=== PATIENT | female | born 1940 | race Caucasian/White ===

== ENCOUNTER 2023-01-16 09:31 | Inpatient (IN) | payer MEDICARE, OTHER, SELFPAY ==
--- NOTE | ~2023-01-16 | CT_ITS ---
EXAMINATION: CT HEAD WITHOUT CONTRAST (STROKE PROTOCOL) CLINICAL INFORMATION: Stroke protocol. Speech changes, confusion. COMPARISON: None available. TECHNIQUE: Contiguous axial imaging was performed from the skull base to vertex without intravenous administration of contrast. Additional 2-D coronal and sagittal reformatted images are generated on the CT workstation and uploaded to PACS. This CT examination was performed using dose optimization techniques as appropriate, variously including the following: *Automated exposure control *Adjustment of mA and/or kV according to patient size (this includes techniques or standardized protocols for targeted exams where dose is matched to indication/reason for exam; i.e. extremities or head) *Use of iterative reconstruction technique DLP: 617 mGy-cm FINDINGS: There is subtle motion artifact in the sections through the base of the brain, limiting assessment. Otherwise, the spencer-white matter differentiation appears within normal and there is no visible acute territorial infarct or mass lesion or dense vessel sign. No mass effect or edema. No intracranial hemorrhage or hematoma or extra-axial fluid collection. The ventricles are normal. No hydrocephalus. There are atrophic changes with prominence of the cortical sulci and fissures and cisterns. The calvarium appears intact. There is no pneumocephalus or orbital emphysema. The visualized sinuses and middle ears and mastoid air cells show no significant mucosal thickening. There are no air-fluid levels. Results called and discussed with RONALDO Kong in the emergency department at [address]/CT head for stroke IMPRESSION: -Subtle motion artifact through base of brain limiting assessment. -Otherwise, no acute intracranial abnormality.
--- NOTE | ~2023-01-16 | XR_ITS ---
EXAMINATION: XR CHEST CLINICAL INFORMATION: 10-year-old female with acute mental status change COMPARISON: None available. TECHNIQUE: Frontal view of the chest was obtained. FINDINGS: There is right lower lobe consolidation due to pneumonia. The rest of lungs are clear. Cardiomediastinal silhouette is normal. XR/XR chest 1V IMPRESSION: Right lower lobe pneumonia
--- NOTE | 2023-01-16 10:04 | ECG_ITS ---
Test Reason : ams Blood Pressure : / mmHG Vent. Rate : 069 BPM Atrial Rate : 069 BPM P-R Int : 190 ms QRS Dur : 094 ms QT Int : 426 ms P-R-T Axes : 027 -04 010 degrees QTc Int : 456 ms Sinus rhythm with Premature atrial complexes with Aberrant conduction Otherwise normal ECG When compared with ECG of 23-OCT-2012 14:30, Aberrant conduction is now Present T wave amplitude has decreased in Anterior leads Referred By: Gely Melendrez Electronically Signed By:Jose Mcclelland
[2023-01-16 10:10] VITALS: BP 137/47; PULSE 75; RESP 18; TEMP 36.9; O2SAT 94; BMI 31.0
--- NOTE | 2023-01-16 11:01 | PC.NURSE ---
pt received in bed alert and oreinted, some slight speech change. Patient has been worked up as a stroke alert, CT negative. IV started to RAC with 20 gauage angio. Labs drawn. Fungal rask under breasts bilaterally managed with absorbent gauze and protective powder. Report to FELIZ Jaime
[2023-01-16 11:09] LABS: MANUAL DIFF FLAG NO
[2023-01-16 11:13] LABS: Basophils Percent Auto 0.2 % (0-2); Eosinophils Percent Auto 0.4 % (0-4); Hematocrit 38.7 % (37.0-47.0); Hemoglobin 12.3 g/dl (12.0-16.0); Imm Gran Abs Auto 0.03 X10*3/uL (0.00-0.03); Imm Gran Pct Auto 0.3 % (0.0-0.4); Lymphocytes Absolute Auto 1.5 X10*3/uL (1.2-4.9); Lymphocytes Percent Auto 13.5 % (20-40); Mean Corpuscular HGB Conc 31.8 g/dl (31.0-35.0); Mean Corpuscular Hemoglobin 31.1 pg (27.0-33.0); Mean Corpuscular Volume 97.7 fL (80.0-98.0); Mean Platelet Volume 11.6 fL (9.4-12.3); Monocytes Absolute Auto 1.2 X10*3/uL (0.1-1.2); Neutrophils Absolute Auto 8.2 x10*3/uL (2.0-8.3); Neutrophils Percent Auto 74.6 % (45-73); Platelet Count 300 X10*3/uL (160-400); Red Blood Count 3.96 X10*6/uL (4.20-5.50); Red Cell Distribution Width 15.5 % (11.0-16.0); White Blood Count 10.9 X10*3/uL (4.8-10.8)
--- NOTE | 2023-01-16 11:14 | MHC.STROKE ---
0951 NOTIFIED BY ED THAT STROKE PROTOCOL WAS ACTIVATED, SLURRED SPEECH, LOC. WALK-IN AT 0931. I MET WITH THE PATIENT AND HER FAMILY, NIHSS = 1 FOR MILD APHASIA AND SHE HAD A SLOW RESPONSE ANSWERING QUESTIONS AND EXPLAINING WHAT WAS HAPPENING. SHE THOUGHT HER DAUGHTER FROM [place] WAS IN HER HOME. THE DAUGHTER AND NELDA WERE IN THE ROOM AND THEY SAID ABOUT 1 YEAR AGO SHE HAD HALLUCINATIONS DUE TO A MEDICATION CHANGE. TODAY SEEMS SIMILAR. SHE SAID YESTERDAY WAS A NORMAL DAY, SHE WENT TO BED AT 2130, WOKE AT 0730 AND THOUGHT SOMEONE WAS IN HER HOUSE, MAYBE HER DAUGHTER. NO OTHER FOCAL DEFICITS, CTH NO BLEED, SHE PASSED THE NURSING SWALLOW SCREEN, THEY ARE ASKING TO SPEAK WITH THE RESERVATION MANAGER, I DID RELAY THAT MESSAGE TO TOM PIPER. HER WORKUP IS IN PROCESS, I EXPLAINED THE PLAN OF CARE TO THE FAMILY. I WILL CONTINUE TO FOLLOW.
[2023-01-16 11:17] LABS: INTERNATIONAL NORM RATIO 1.6 (0.9-1.1); Prothrombin Time 18.4 SEC (10.0-13.1)
[2023-01-16 11:34] LABS: Troponin-I High Sensitivity 13.1 ng/L (<3.5-17.0)
[2023-01-16 11:39] LABS: Alanine Aminotransferase 21 U/L (0-31); Albumin Level 4.2 g/dL (3.5-5.0); Alkaline Phosphatase 88 U/L (39-117); Anion Gap 17 (12-20); Aspartate Amino Transferase 31 U/L (5-31); Bilirubin Direct 0.1 mg/dL (0.0-0.5); Bilirubin Total 0.6 mg/dL (0.0-1.0); Blood Urea Nitrogen 36 mg/dL (9-16); Calcium 10.1 mg/dL (8.4-10.2); Carbon Dioxide 24 mmol/L (22-29); Chloride 110 mmol/L (96-108); Creatinine Clr Calc Pharmacy 25.5; Estimated Glomerular Filt Rate 28; Glucose Random 115 mg/dL (60-115); Magnesium 2.2 mg/dL (1.6-2.6); Potassium 4.5 mmol/L (3.3-5.1); Sodium 146 mmol/L (135-145); Total Protein 7.2 g/dL (6.5-8.0)
[2023-01-16 11:41] LABS: B Type Natriuretic Peptide 149 pg/mL (<100)
--- NOTE | 2023-01-16 11:48 | PHA.MEDREC ---
Pharmacy Consult ? Medication Reconciliation Pharmacy has completed the medication reconciliation. spoke with patient and family member who had pictures of her medication bottles. The patient says that she stopped taking her Alendronate (patient states she does not like it) and does not take spironolactone everyday (only medication they did not take a photo of). The family member explained that the patient takes furosemide as directed by her doctor who she calls with her weight every morning, which determines her dose. Patient reports taking her medications yesterday.
[2023-01-16 11:56] LABS: Ammonia 19 umol/L (13-55)
[2023-01-16 12:39] VITALS: BP 120/56; PULSE 82; RESP 18; TEMP 36.5; O2SAT 94
[2023-01-16] MEDS: 0.9 % Sodium Chloride 250 ML 999 ML IV (14:11)
[2023-01-16] MEDS: cefTRIAXone sodium 1 GM in 0.9 % Sodium Chloride 50 ML IV (14:11)
--- NOTE | 2023-01-16 14:11 | ED_ITS ---
HPI - Neuro Symptoms/Deficit General Chief Complaint: Neuro Symptoms/Deficit Stated Complaint: spured speach Time Seen by Provider: 01/16/23 09:51 Source: patient, RN notes reviewed and old records reviewed Mode of arrival: ambulatory History of Present Illness HPI Narrative: 82-year-old female with past medical history of AFib on Eliquis, CHF, hypothyroid, HTN, HLD, presenting to the ED from home with family for reported confusion and word slurring since this morning. Last known well time unknown. Patient lives at home alone. Per daughter patient called her 1 hour DIGITAL CONTENT MANAGER and was noted to be confused. No reported falls or injury. Daughter states patient with similar episode a few years ago and was believed to be secondary to med ications. Denies recent illness, fever, CP/SOB, abdominal pain, nausea/vomiting. Onset (ago): unknown Related Data Home Medications Medication Instructions Recorded Confirmed apixaban 5 mg tablet (Eliquis) 5 mg PO BID 01/16/23 01/16/23 azelastine 137 mcg (0.1 %) nasal 2 spray intranasal BID PRN 01/16/23 01/16/23 spray aerosol allergies furosemide 40 mg tablet 40 - 80 mg PO DAILY 01/16/23 01/16/23 ipratropium bromide 21 mcg (0.03 1 spray intranasal BID 01/16/23 01/16/23 %) nasal spray levothyroxine 100 mcg tablet 100 mcg PO DAILY 01/16/23 01/16/23 metoprolol succinate 100 mg 100 mg PO BID 01/16/23 01/16/23 tablet,extended release 24 hr olanzapine 5 mg tablet 2.5 mg PO QAM 01/16/23 01/16/23 olanzapine 5 mg tablet 5 mg PO BEDTIME 01/16/23 01/16/23 rosuvastatin 40 mg tablet 40 mg PO BEDTIME 01/16/23 01/16/23 spironolactone 25 mg tablet 25 mg PO DAILY 01/16/23 01/16/23 vilazodone 20 mg tablet 20 mg PO DAILY 01/16/23 01/16/23 Allergies Allergy/AdvReac Type Severity Reaction Status Date / Time levofloxacin [From LEVAQUIN] Allergy Unknown RASH Unverified 04/30/20 16:15 penicillin G [PENICILLIN G] Allergy Unknown RASH Unverified 04/30/20 16:15 Review of Systems Review of Systems: ROS limited to patients acute mental status Yes all other systems are reviewed and are negative Constitutional: Constitutional: Reports as per HPI Neurologic: Denies Abnormal speech present and Reports confusion Psychiatric: Psychiatric: Reports confusion [facility]LY [facility] Past Medical History Attestation statement: The following information was validated with the patient. Source: old records reviewed Medical History (Updated 01/16/23 @ 15:05 by Gladys Caba NP) Afib CHF (congestive heart failure) Depression Hyperlipidemia Hypothyroidism Social History Social History Advance Directives: Yes Advance Directives on File: No Physical Exam Vital Signs: Vital Signs: Last Vital Signs Temp 97.7 F 01/16/23 12:39 Pulse 82 01/16/23 12:39 Resp 18 01/16/23 12:39 BP 120/56 L 01/16/23 12:39 Pulse Ox 94 01/16/23 12:39 O2 Del Method Room Air 01/16/23 12:39 BMI result Body Mass Index 31.0 Const: General: cooperative, no acute distress and confusion Orientation/consciousness: patient oriented x3 and confusion Limitations: no limitations HEENT: Head: Yes normal to inspection and Yes atraumatic Ears: hearing grossly normal bilaterally General nose exam: Normal external nose present Face and sinus: Yes normal facial exam Eyes: General: appearance normal, both eyes and all related structures EOM: EOMs intact bilaterally Neck: Neck: Yes normal visual inspection and Yes no meningeal signs Resp: Effort & Inspection: normal respiratory effort and no respiratory distress Auscultation: crackles on the right at the base Cardio: Rate: regular rate Heart sounds: S1 normal heart sound present and S2 normal heart sound present GI: Inspection: Yes normal to inspection Palpation (GI): Soft to palpation, nontender, no guarding and not rigid Back/Spine/Pelvis: Other: No midline cervical/thoracic/lumbar spinous tenderness/step-off or deformity Skin: Other: +tinea coprous/intertrigo noted beneath bilateral breasts > left with erythema and malodor Wounds: no wounds Neuro: Other: Pleasantly confused General: patient oriented x3, tone normal, moves all extremities, no meningeal signs, no focal motor deficits, CN's II-XI intact bilaterally and confusion Cognition (Neuro): normal cognition Speech: No Abnormal speech present Motor exam (neuro): 5/5 motor strength present throughout Extrem: Other: + bilateral LE pitting edema chronic per patient Course Course Course Narrative: 1417--mild leukocytosis of 10.9. PAOLA with a creatinine of 1.7, BUN of 36 CT head for stroke IMPRESSION: -Subtle motion artifact through base of brain limiting assessment. -Otherwise, no acute intracranial abnormality XR chest 1V IMPRESSION: Right lower lobe pneumonia ? >lactic/blood cultures ordered. Low suspicion for severe sepsis. Empiric IV Rocephin/azithromycin ordered. Likely cause of patient's con fusion/encephalopathy. Plan will be for admission Medications Administered Generic Name Dose Route Start Last Admin Trade Name Freq PRN Reason Stop Dose Admin Azithromycin 500 mg/ Sodium 250 mls @ 125 mls/hr 01/16/23 13:18 01/16/23 14:12 Chloride IV 01/16/23 15:17 125 mls/hr ONCE ONE Administration Discontinued Medications Generic Name Dose Route Start Last Admin Trade Name Freq PRN Reason Stop Dose Admin Ceftriaxone Sodium 1 gm/ 50 mls @ 100 mls/hr 01/16/23 13:18 01/16/23 14:11 Sodium Chloride IV 01/16/23 13:47 100 mls/hr ONCE ONE Administration Sodium Chloride 250 mls @ 999 mls/hr 01/16/23 13:30 01/16/23 14:11 Ns IV 01/16/23 13:45 999 mls/hr .Q16M LUCIANA Administration Medical Decision Making Medical Decision Making MDM Narrative: 82-year-old female with past medical history of AFib on Eliquis, CHF, hypothyroid, HTN, HLD, presenting to the ED from home with family for reported confusion and word slurring since this morning. On exam vital signs stable, NAD, A&O x3 however pleasantly confused, no evidence of trauma, right basilar crackles noted with chronic LE edema. Concern for CVA vs infectious etiology vs metabolic abnormalities. Rule out ICH. low suspicion for fractures/ACS or PE Plan: EKG, labs, CXR, head CT stroke protocol, UA, anticipated admission Please refer to course for remaining clinical decision making, interpretation of labs/imaging results, and discussions with consultants and/or family members. Differential Diagnosis Differential Diagnoses: The differential diagnosis associated with the presentation includes As above Admission/Observation Consideration of admission/observation: Escalation of care including admission/observation considered Consult Healthcare Provider Management of the patient was discussed with: Hospitalist Lab Data MDM Lab Attestation statement: I reviewed the patient's lab results. 01/16/23 10:57 01/16/23 10:57 Labs: Lab Results 01/16/23 01/16/23 01/16/23 Range/Units 10:57 10:57 10:57 WBC 10.9 H (4.8-10.8) X10*3/uL RBC 3.96 L (4.20-5.50) X10*6/uL Hgb 12.3 (12.0-16.0) g/dl Hct 38.7 (37.0-47.0) % MCV 97.7 (80.0-98.0) fL MCH 31.1 (27.0-33.0) pg MCHC 31.8 (31.0-35.0) g/dl RDW 15.5 (11.0-16.0) % Plt Count 300 (160-400) X10*3/uL MPV 11.6 (9.4-12.3) fL Immature Gran % (Auto) 0.3 (0.0-0.4) % Neut % (Auto) 74.6 H (45-73) % Lymph % (Auto) 13.5 L (20-40) % [place] % (Auto) 11.0 (2-11) % Eos % (Auto) 0.4 (0-4) % Baso % (Auto) 0.2 (0-2) % Lymph # (Auto) 1.5 (1.2-4.9) X10*3/uL [place] # (Auto) 1.2 (0.1-1.2) X10*3/uL Eos # (Auto) 0.0 (0.0-0.4) X10*3/uL Baso # (Auto) 0.0 (0.0-0.2) X10*3/uL Abs Immat Gran (auto) 0.03 (0.00-0.03) X10*3/uL Absolute Neuts (auto) 8.2 (2.0-8.3) x10*3/uL Absolute Nucleated RBC 0.000 (0.0-0.012) X10*3/uL Nucleated RBC % (auto) 0.0 (0.0-0.2) /100WBC PT 18.4 H (10.0-13.1) SEC INR 1.6 H (0.9-1.1) Sodium 146 H (135-145) mmol/L Potassium 4.5 (3.3-5.1) mmol/L Chloride 110 H (96-108) mmol/L Carbon Dioxide 24 (22-29) mmol/L Anion Gap 17 (12-20) BUN 36 H (9-16) mg/dL Creatinine 1.75 H (0.5-1.4) mg/dL Estim Creat Clear Calc 25.5 Estimated GFR 28 Random Glucose 115 (60-115) mg/dL Lactic Acid (0.5-2.0) mmol/L Calcium 10.1 (8.4-10.2) mg/dL Magnesium 2.2 (1.6-2.6) mg/dL Total Bilirubin 0.6 (0.0-1.0) mg/dL Direct Bilirubin 0.1 (0.0-0.5) mg/dL AST 31 (5-31) U/L ALT 21 (0-31) U/L Alkaline Phosphatase 88 (39-117) U/L Ammonia (13-55) umol/L Troponin I High Sens (<3.5-17.0) ng/L B-Natriuretic Peptide (<100) pg/mL Total Protein 7.2 (6.5-8.0) g/dL Albumin 4.2 (3.5-5.0) g/dL 01/16/23 01/16/23 01/16/23 Range/Units 10:57 10:58 11:45 WBC (4.8-10.8) X10*3/uL RBC (4.20-5.50) X10*6/uL Hgb (12.0-16.0) g/dl Hct (37.0-47.0) % MCV (80.0-98.0) fL MCH (27.0-33.0) pg MCHC (31.0-35.0) g/dl RDW (11.0-16.0) % Plt Count (160-400) X10*3/uL MPV (9.4-12.3) fL Immature Gran % (Auto) (0.0-0.4) % Neut % (Auto) (45-73) % Lymph % (Auto) (20-40) % [place] % (Auto) (2-11) % Eos % (Auto) (0-4) % Baso % (Auto) (0-2) % Lymph # (Auto) (1.2-4.9) X10*3/uL [place] # (Auto) (0.1-1.2) X10*3/uL Eos # (Auto) (0.0-0.4) X10*3/uL Baso # (Auto) (0.0-0.2) X10*3/uL Abs Immat Gran (auto) (0.00-0.03) X10*3/uL Absolute Neuts (auto) (2.0-8.3) x10*3/uL Absolute Nucleated RBC (0.0-0.012) X10*3/uL Nucleated RBC % (auto) (0.0-0.2) /100WBC PT (10.0-13.1) SEC INR (0.9-1.1) Sodium (135-145) mmol/L Potassium (3.3-5.1) mmol/L Chloride (96-108) mmol/L Carbon Dioxide (22-29) mmol/L Anion Gap (12-20) BUN (9-16) mg/dL Creatinine (0.5-1.4) mg/dL Estim Creat Clear Calc Estimated GFR Random Glucose (60-115) mg/dL Lactic Acid (0.5-2.0) mmol/L Calcium (8.4-10.2) mg/dL Magnesium (1.6-2.6) mg/dL Total Bilirubin (0.0-1.0) mg/dL Direct Bilirubin (0.0-0.5) mg/dL AST (5-31) U/L ALT (0-31) U/L Alkaline Phosphatase (39-117) U/L Ammonia 19 (13-55) umol/L Troponin I High Sens 13.1 (<3.5-17.0) ng/L B-Natriuretic Peptide 149 H (<100) pg/mL Total Protein (6.5-8.0) g/dL Albumin (3.5-5.0) g/dL 06/05/23 06/05/23 Range/Units 14:02 14:03 WBC (4.8-10.8) X10*3/uL RBC (4.20-5.50) X10*6/uL Hgb (12.0-16.0) g/dl Hct (37.0-47.0) % MCV (80.0-98.0) fL MCH (27.0-33.0) pg MCHC (31.0-35.0) g/dl RDW (11.0-16.0) % Plt Count (160-400) X10*3/uL MPV (9.4-12.3) fL Immature Gran % (Auto) (0.0-0.4) % Neut % (Auto) (45-73) % Lymph % (Auto) (20-40) % [place] % (Auto) (2-11) % Eos % (Auto) (0-4) % Baso % (Auto) (0-2) % Lymph # (Auto) (1.2-4.9) X10*3/uL [place] # (Auto) (0.1-1.2) X10*3/uL Eos # (Auto) (0.0-0.4) X10*3/uL Baso # (Auto) (0.0-0.2) X10*3/uL Abs Immat Gran (auto) (0.00-0.03) X10*3/uL Absolute Neuts (auto) (2.0-8.3) x10*3/uL Absolute Nucleated RBC (0.0-0.012) X10*3/uL Nucleated RBC % (auto) (0.0-0.2) /100WBC PT (10.0-13.1) SEC INR (0.9-1.1) Sodium (135-145) mmol/L Potassium (3.3-5.1) mmol/L Chloride (96-108) mmol/L Carbon Dioxide (22-29) mmol/L Anion Gap (12-20) BUN (9-16) mg/dL Creatinine (0.5-1.4) mg/dL Estim Creat Clear Calc Estimated GFR Random Glucose (60-115) mg/dL Lactic Acid 0.9 (0.5-2.0) mmol/L Calcium (8.4-10.2) mg/dL Magnesium (1.6-2.6) mg/dL Total Bilirubin (0.0-1.0) mg/dL Direct Bilirubin (0.0-0.5) mg/dL AST (5-31) U/L ALT (0-31) U/L Alkaline Phosphatase (39-117) U/L Ammonia (13-55) umol/L Troponin I High Sens 11.9 (<3.5-17.0) ng/L B-Natriuretic Peptide (<100) pg/mL Total Protein (6.5-8.0) g/dL Albumin (3.5-5.0) g/dL Radiology Impression Discussion of test interpretation with radiology: I have reviewed the radiologist's reading. External Record Review External record reviewed: Inpatient record, Office record, Outpatient record, Prior outpatient labs, Prior outpatient radiology, Primary care record and Outside ED record Tests considered The following testing was considered but not selected: As above Critical Care Time Critical Care Time Critical Care Time: Yes Total Critical Care Time: 32 Attestation: I have personally provided critical care time exclusive of time spent on separately billable procedures. Time includes review of lab data, radiology results, discussion with consultants, and monitoring for potential dec ompensation. Intervention performed as documented. Discharge Plan Discharge Clinical Impression: Pneumonia, Encephalopathy Patient Disposition: Admitted As Inpatient
[2023-01-16] MEDS: Azithromycin 500 MG in 0.9 % Sodium Chloride 250 ML 125 MG IV (14:12)
[2023-01-16 14:30] LABS: Lactic Acid 0.9 mmol/L (0.5-2.0)
[2023-01-16 14:41] LABS: Troponin-I High Sensitivity 11.9 ng/L (<3.5-17.0)
--- NOTE | 2023-01-16 15:03 | P.HPHOSP_ITS ---
History of Present Illness Date of Service: 01/16/23 Attending physician on admission: Zhanna Mullins Chief Complaint: confusion 82 year old women presenting with increased confusion over the last several days with some mild shortness of breath. According to the patient's daughter this had happened previously about a year ago and was related to medication changes. Patient denied fever, chills, nausea, vomiting, diarrhea. Her daughter reported that she had called her today and told her that her other sister was in the room with her boyfriend but in fact her daughter lives in another state and is . Patient seems pleasantly confused but alert to self and place. Chest x-ray with noted right lower lobe pneumonia, head CT negative for acute abnormality. Sodium 146, creatinine 1.75, patient with a history chronic kidney disease. Vital signs stable. Patient was given a dose of Rocephin, azithromycin, IV fluid. She will be admitted for further management and treatment of acute to encephalopathy secondary to community-acquired pneumonia. Review of Systems Review of Systems: Denies any recent fever chills or decrease in appetite, confusion respiratory denies any shortness of breath coverage production cardiovascular denied chest pain gastrointestinal denies any dysphagia abdominal pain nausea vomiting or diarrhea genitourinary denies any dysuria frequency or hematuria musculoskeletal denies any joint pain or swelling neuropsych denies any weakness or seizures all other systems reviewed are negative FOR[facility]LY [facility] Medical History (Updated 01/16/23 @ 15:05 by Gladys Caba NP) Afib CHF (congestive heart failure) Depression Hyperlipidemia Hypothyroidism Family History (Updated 01/16/23 @ 16:03 by Gladys Caba NP) Father Stroke Surgical History (Updated 01/16/23 @ 15:06 by Gladys Caba NP) H/O knee surgery H/O: hysterectomy Social History Advance Directives: Yes Advance Directives on File: No Meds Allergies Allergy/AdvReac Type Severity Reaction Status Date / Time levofloxacin [From LEVAQUIN] Allergy Unknown RASH Unverified 04/30/20 16:15 penicillin G [PENICILLIN G] Allergy Unknown RASH Unverified 04/30/20 16:15 Active Medications: Current Medications Azithromycin 500 mg/ Sodium (Chloride) 250 mls @ 125 mls/hr IV ONCE ONE Stop: 01/16/23 15:17 Last Admin: 01/16/23 14:12 Dose: 125 mls/hr Home Medications Medication Instructions Recorded Confirmed Last Taken Type apixaban 5 mg tablet (Eliquis) 5 mg PO BID 01/16/23 01/16/23 01/15/23 History azelastine 137 mcg (0.1 %) nasal 2 spray intranasal BID PRN 01/16/23 01/16/23 01/15/23 History spray aerosol allergies furosemide 40 mg tablet 40 - 80 mg PO DAILY 01/16/23 01/16/23 01/15/23 History ipratropium bromide 21 mcg (0.03 1 spray intranasal BID 01/16/23 01/16/23 01/15/23 History %) nasal spray levothyroxine 100 mcg tablet 100 mcg PO DAILY 01/16/23 01/16/23 01/15/23 History metoprolol succinate 100 mg 100 mg PO BID 01/16/23 01/16/23 01/15/23 History tablet,extended release 24 hr olanzapine 5 mg tablet 2.5 mg PO QAM 01/16/23 01/16/23 01/15/23 History olanzapine 5 mg tablet 5 mg PO BEDTIME 01/16/23 01/16/23 01/15/23 History rosuvastatin 40 mg tablet 40 mg PO BEDTIME 01/16/23 01/16/23 01/15/23 History spironolactone 25 mg tablet 25 mg PO DAILY 01/16/23 01/16/23 Unknown History vilazodone 20 mg tablet 20 mg PO DAILY 01/16/23 01/16/23 01/15/23 History Physical Exam Vital Signs and Narrative: Vital Signs: Last Vital Signs Temp 97.7 F 01/16/23 12:39 Pulse 82 01/16/23 12:39 Resp 18 01/16/23 12:39 BP 120/56 L 01/16/23 12:39 Pulse Ox 94 01/16/23 12:39 O2 Del Method Room Air 01/16/23 12:39 BMI result Body Mass Index 31.0 Appearing in no acute distress head is normocephalic atraumatic eyes pupils are PERRLA sclera is anicteric mouth throat mucous membranes are intact and moist neck is supple no lymphadenopathy, no JVD noted lung sounds are clear to auscultation heart regular rate rhythm, clear S1, S2 positive bowel sounds, abdomen is soft, nontender neuro patient is alert x3, no focal deficits LE edema bilaterally chronic Results Labs 01/16/23 10:57 01/16/23 10:57 Labs: Laboratory Results - last 24 hr 01/16/23 01/16/23 01/16/23 10:57 10:57 10:57 MCV 97.7 MCH 31.1 MCHC 31.8 RDW 15.5 Plt Count 300 MPV 11.6 Immature Gran % (Auto) 0.3 Neut % (Auto) 74.6 H Lymph % (Auto) 13.5 L [place] % (Auto) 11.0 Eos % (Auto) 0.4 Baso % (Auto) 0.2 Lymph # (Auto) 1.5 [place] # (Auto) 1.2 Eos # (Auto) 0.0 Baso # (Auto) 0.0 Abs Immat Gran (auto) 0.03 Absolute Neuts (auto) 8.2 Absolute Nucleated RBC 0.000 Nucleated RBC % (auto) 0.0 PT 18.4 H INR 1.6 H Anion Gap 17 Estim Creat Clear Calc 25.5 Estimated GFR 28 Random Glucose 115 Lactic Acid Calcium 10.1 Magnesium 2.2 Total Bilirubin 0.6 Direct Bilirubin 0.1 AST 31 ALT 21 Alkaline Phosphatase 88 Ammonia Troponin I High Sens B-Natriuretic Peptide Total Protein 7.2 Albumin 4.2 01/16/23 01/16/23 01/16/23 10:57 10:58 11:45 MCV MCH MCHC RDW Plt Count MPV Immature Gran % (Auto) Neut % (Auto) Lymph % (Auto) [place] % (Auto) Eos % (Auto) Baso % (Auto) Lymph # (Auto) [place] # (Auto) Eos # (Auto) Baso # (Auto) Abs Immat Gran (auto) Absolute Neuts (auto) Absolute Nucleated RBC Nucleated RBC % (auto) PT INR Anion Gap Estim Creat Clear Calc Estimated GFR Random Glucose Lactic Acid Calcium Magnesium Total Bilirubin Direct Bilirubin AST ALT Alkaline Phosphatase Ammonia 19 Troponin I High Sens 13.1 B-Natriuretic Peptide 149 H Total Protein Albumin 01/16/23 01/16/23 14:02 14:03 MCV MCH MCHC RDW Plt Count MPV Immature Gran % (Auto) Neut % (Auto) Lymph % (Auto) [place] % (Auto) Eos % (Auto) Baso % (Auto) Lymph # (Auto) [place] # (Auto) Eos # (Auto) Baso # (Auto) Abs Immat Gran (auto) Absolute Neuts (auto) Absolute Nucleated RBC Nucleated RBC % (auto) PT INR Anion Gap Estim Creat Clear Calc Estimated GFR Random Glucose Lactic Acid 0.9 Calcium Magnesium Total Bilirubin Direct Bilirubin AST ALT Alkaline Phosphatase Ammonia Troponin I High Sens 11.9 B-Natriuretic Peptide Total Protein Albumin Imaging Radiologist's Impressions: Impressions Head CT 01/16/23 09:53 IMPRESSION: -Subtle motion artifact through base of brain limiting assessment. -Otherwise, no acute intracranial abnormality. Chest X-Ray 01/16/23 10:13 IMPRESSION: Right lower lobe pneumonia Assessment and Plan (1) Pneumonia: Status: Acute Plan 82 year old women admitted with acute metabolic encephalopathy secondary to CAP Acute metabolic encephalopathy secondary to CAP Start Rocephin and azithromycin supplemental oxygen as needed follow blood cx monitor mental status PAOLA on ckd 4 baseline likely secondary to dehydration hold lasix and spironolactone follow BMP chronic LE edema hold lasix and spironolactone for now due to PAOLA mental health continue home medications ARMIDA cpap Obesity. BMI 31.0 Discussed importance of weight management as this may be contributing to worsening of other comorbidities DVT prophylaxis with dorian attending Dr. Mullins full code 2 inpatient midnights for tx of encephalopathy and CAP Time Spent With Patient Time: Total time managing care of this patient today ____ minutes. Quality Stroke Does the patient have a stroke diagnosis?: No VTE Prior VTE?: No VTE Risk Level:: Medical - moderate - high VTE Device Contraindication: Treatment Not Indicated VTE Drug Contraindication: N/A - Med Ordered
[2023-01-16 16:27] VITALS: BP 109/58; PULSE 91; RESP 18; O2SAT 91
[2023-01-16 16:41] LABS: Appearance Urine Clear; Color Urine Yellow; Glucose Urine UA Negative (Negative); Leukocyte Esterase Urine Moderate (2+) (Negative); Nitrite Urine Positive (Negative); PH 5.5 (5.0-9.0); UMIC TRIGGER UACC YES; Urine Blood Negative (Negative); Urine Ketones Trace mg/dL (Negative); Urine Protein 30 (1+) mg/dL (Neg-Trace)
[2023-01-16 16:43] LABS: Bacteria Urine 4+ (None Seen); Hyaline Casts Urine 0-2 /LPF (0-2); RBC Urine 0-2 /HPF (0-2); UACC Culture Trigger YES
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
[2023-01-16] MEDS: OLANZapine 5 MG TABLET PO (20:53)
[2023-01-16] MEDS: Metoprolol Succinate ER 100 MG TAB.ER.24H PO (20:53)
[2023-01-16] MEDS: Atorvastatin Calcium 80 MG TABLET PO (20:53)
[2023-01-16] MEDS: Apixaban 5 MG TABLET PO (20:53)
[2023-01-16 21:44] VITALS: BP 161/70; PULSE 117; RESP 22; TEMP 37.1; O2SAT 94
[2023-01-16 22:30] VITALS: BP 141/67; PULSE 94; RESP 16; TEMP 36; O2SAT 96
[2023-01-16 23:26] VITALS: BMI 34.0
[2023-01-17] VITALS (8 sets, daily range): BP systolic 132–159; BP diastolic 65–90; PULSE 72–90; RESP 16–20; TEMP 36.1–36.7; O2SAT 91–96
[2023-01-17] MEDS: 0.9 % Sodium Chloride Flush 3 ML SYRINGE IVFLUSH ×4 (01:06→19:50)
[2023-01-17] MEDS: Levothyroxine Sodium 100 MCG TABLET PO (05:35)
[2023-01-17 07:02] LABS: Basophils Percent Auto 0.1 % (0-2); Eosinophils Percent Auto 0.2 % (0-4); Hemoglobin 11.8 g/dl (12.0-16.0); Imm Gran Abs Auto 0.05 X10*3/uL (0.00-0.03); Imm Gran Pct Auto 0.4 % (0.0-0.4); Lymphocytes Absolute Auto 2.6 X10*3/uL (1.2-4.9); Lymphocytes Percent Auto 20.2 % (20-40); MANUAL DIFF FLAG SCAN; Mean Corpuscular HGB Conc 31.1 g/dl (31.0-35.0); Mean Corpuscular Hemoglobin 29.9 pg (27.0-33.0); Mean Corpuscular Volume 96.4 fL (80.0-98.0); Mean Platelet Volume 11.8 fL (9.4-12.3); Monocytes Absolute Auto 1.5 X10*3/uL (0.1-1.2); Monocytes Percent Auto 11.8 % (2-11); Neutrophils Absolute Auto 8.6 x10*3/uL (2.0-8.3); Neutrophils Percent Auto 67.3 % (45-73); Platelet Count 308 X10*3/uL (160-400); Red Blood Count 3.94 X10*6/uL (4.20-5.50); Red Cell Distribution Width 15.8 % (11.0-16.0); SCAN SMEAR FLAG 1; White Blood Count 12.8 X10*3/uL (4.8-10.8)
[2023-01-17 07:17] LABS: Anion Gap 18 (12-20); Blood Urea Nitrogen 23 mg/dL (9-16); Calcium 9.8 mg/dL (8.4-10.2); Carbon Dioxide 21 mmol/L (22-29); Chloride 111 mmol/L (96-108); Creatinine Clr Calc Pharmacy 33.7; Estimated Glomerular Filt Rate 36; Glucose Random 102 mg/dL (60-115); Potassium 4.1 mmol/L (3.3-5.1); Sodium 146 mmol/L (135-145)
[2023-01-17 07:27] LABS: SLIDE REVIEW VERIFIED
[2023-01-17] MEDS: OLANZapine 2.5 MG TABLET PO (08:26)
[2023-01-17] MEDS: Metoprolol Succinate ER 100 MG TAB.ER.24H PO ×2 (08:26→19:49)
[2023-01-17] MEDS: Apixaban 5 MG TABLET PO ×2 (08:27→19:50)
[2023-01-17] MEDS: Vilazodone HCL 20 MG TABLET PO (11:01)
[2023-01-17] MEDS: cefTRIAXone sodium 1 GM in 0.9 % Sodium Chloride 50 ML IV (13:15)
--- NOTE | 2023-01-17 14:47 | HO.PM.IMPN ---
Subjective Subjective Date of Service: 01/17/23 Review of Systems Follow up CAP feeling better, no cough still with some mild confusion Physical Exam Vital Signs: Vital Signs: Last Vital Signs Temp 97.5 F 01/17/23 12:00 Pulse 85 01/17/23 12:00 Resp 18 01/17/23 12:00 BP 159/73 H 01/17/23 12:00 Pulse Ox 92 01/17/23 12:00 O2 Del Method Room Air 01/17/23 12:00 BMI result Body Mass Index 34.0 Appearing in no acute distress lung sounds are clear to auscultation heart regular rate rhythm, clear S1, S2 positive bowel sounds, abdomen is soft, nontender neuro patient is alert x3, no focal deficits Objective Data Active Medications Acetaminophen (Acetaminophen 325 Mg Tablet) 650 mg PO Q6H PRN PRN Reason: Pain, Mild (Pain Scale 1-3) Apixaban (Apixaban 5 Mg Tablet) 5 mg PO BID [facility] Last Admin: 01/17/23 08:27 Dose: 5 mg Documented By: MARTIR Atorvastatin Calcium (Atorvastatin Calcium 80 Mg Tablet) 80 mg PO BEDTIME [facility] Last Admin: 01/16/23 20:53 Dose: 80 mg Documented By: TREY Azelastine HCl (Azelastine Hcl Nasal 137 Mcg/[place] 30 Ml) 2 spray NOSTRIL-B BID PRN PRN Reason: allergies Ceftriaxone Sodium 1 gm/ (Sodium Chloride) 50 mls @ 100 mls/hr IV Q24H [facility] Last Infusion: 01/17/23 14:08 Dose: 0 mls/hr Documented By: MARTIR Azithromycin 500 mg/ Sodium (Chloride) 250 mls @ 125 mls/hr IV Q24H [facility] Ipratropium [place] (Ipratropium [place] 0.03 % 30 Ml [place]) 1 spray NOSTRIL-B BID [facility] Last Admin: 01/17/23 11:07 Dose: Not Given Documented By: MARTIR Non-Admin Reason: Med Not Available Levothyroxine Sodium (Levothyroxine Sodium 100 Mcg Tablet) 100 mcg PO DAILY@0600 [facility] Last Admin: 01/17/23 05:35 Dose: 100 mcg Documented By: ERIC Metoprolol Succinate (Metoprolol Succinate Er 100 Mg Tab.Er.24h) 100 mg PO BID [facility]; Protocol Last Admin: 01/17/23 08:26 Dose: 100 mg Documented By: MARTIR Olanzapine (Olanzapine 2.5 Mg Tablet) 2.5 mg PO DAILY [facility] Last Admin: 01/17/23 08:26 Dose: 2.5 mg Documented By: MARTIR Olanzapine (Olanzapine 5 Mg Tablet) 5 mg PO BEDTIME [facility] Last Admin: 01/16/23 20:53 Dose: 5 mg Documented By: TREY Ondansetron HCl (Ondansetron Hcl 4 Mg/2 Ml Vial) 4 mg IVPUSH Q8H PRN PRN Reason: Nausea and Vomiting Sodium Chloride (0.9 % Sodium Chloride Flush 3 Ml Syringe) 3 ml IVFLUSH QSHIFT [facility] Last Admin: 01/17/23 08:27 Dose: 3 ml Documented By: MARTIR Vilazodone HCl (Vilazodone Hcl 20 Mg Tablet) 20 mg PO DAILY [facility] Last Admin: 01/17/23 11:01 Dose: 20 mg Documented By: MARTIR Labs 01/17/23 05:40 01/17/23 05:40 Labs: Laboratory Results - last 24 hr 01/16/23 01/17/23 01/17/23 16:30 05:40 05:40 MCV 96.4 MCH 29.9 MCHC 31.1 RDW 15.8 Plt Count 308 MPV 11.8 Immature Gran % (Auto) 0.4 Neut % (Auto) 67.3 Lymph % (Auto) 20.2 [place] % (Auto) 11.8 H Eos % (Auto) 0.2 Baso % (Auto) 0.1 Lymph # (Auto) 2.6 [place] # (Auto) 1.5 H Eos # (Auto) 0.0 Baso # (Auto) 0.0 Abs Immat Gran (auto) 0.05 H Absolute Neuts (auto) 8.6 H Absolute Nucleated RBC 0.000 Nucleated RBC % (auto) 0.0 Smear Tech's Comments VERIFIED Anion Gap 18 Estim Creat Clear Calc 33.7 Estimated GFR 36 Random Glucose 102 Calcium 9.8 Urine Color Yellow Urine Appearance Clear Urine pH 5.5 Ur Specific [place] 1.020 Urine Protein 30 (1+) H Urine Glucose (UA) Negative Urine Ketones Trace Urine Blood Negative Urine Nitrite Positive H Ur Leukocyte Esterase Moderate (2+) H Urine RBC 0-2 Urine WBC 11-20 H Ur Squamous Epith Cells 6-10 Urine Bacteria 4+ Hyaline Casts 0-2 Microbiology Microbiology Results: Microbiology 01/16/23 16:44 Urine Culture - Preliminary Urine clean catch - Urine spencer top Culture too young to evaluate. Assessment and Plan (1) Pneumonia: Status: Acute Plan 82 year old women admitted with acute metabolic encephalopathy secondary to CAP Acute metabolic encephalopathy secondary to CAP continue Rocephin and azithromycin supplemental oxygen as needed follow blood cx monitor mental status PAOLA on ckd 4. Resolved close to baseline likely secondary to dehydration hold lasix and spironolactone for now, restart in am if renal function allows follow BMP chronic LE edema hold lasix and spironolactone for now due to PAOLA. restart in am mental health continue home medications ARMIDA cpap Obesity. BMI 31.0 Discussed importance of weight management as this may be contributing to worsening of other comorbidities DVT prophylaxis with dorian attending Dr. Recinos full code dispo plan for home with PT continue tx of encephalopathy and CAP Time Spent With Patient Time: Total time managing care of this patient today ____ minutes. Quality Stroke Does the patient have a stroke diagnosis?: No VTE Prior VTE?: No VTE Risk Level:: Medical - moderate - high VTE Device Contraindication: Treatment Not Indicated VTE Drug Contraindication: N/A - Med Ordered
[2023-01-17] MEDS: Azithromycin 500 MG in 0.9 % Sodium Chloride 250 ML 125 MG IV (14:51)
--- NOTE | 2023-01-17 14:52 | P.DS_ITS ---
DS: Providers Provider Date of admission: 01/16/23 16:09 Primary care physician: Jen Yeboah MD DS: Diagnosis Discharge Diagnosis (1) Pneumonia: Status: Acute DS: Summary Hospital Course Hospital Course: 82 year old women presenting with increased confusion over the last several days with some mild shortness of breath.? According to the patient's daughter this had happened previously about a year ago and was related to medication changes.? Patient denied fever, chills, nausea, vomiting, diarrhea.? Her daughter reported that she had called her today and told her that her other sister was in the room with her boyfriend but in fact her daughter lives in another state and is .? Patient seems pleasantly confused but alert to self and place.? Chest x-ray with noted right lower lobe pneumonia, head CT negative for acute abnormality.? Sodium 146, creatinine 1.75, patient with a history chronic kidney disease.? Vital signs stable.? Patient was given a dose of Rocephin, azithromycin, IV fluid.? She will be admitted for further management and treatment of acute to encephalopathy secondary to community-acquired pneumonia. Acute metabolic encephalopathy secondary to CAP continue Rocephin and azithromycin supplemental oxygen as needed follow blood cx monitor mental status PAOLA on ckd 4. Resolved close to baseline likely secondary to dehydration hold lasix and spironolactone for now, restart in am if renal function allows follow BMP chronic LE edema hold lasix and spironolactone for now due to PAOLA. restart in am mental health continue home medications ARMIDA cpap Obesity. BMI 31.0 Discussed importance of weight management as this may be contributing to worsening of other comorbidities Time Spent with Patient Time attestation: Total time managing care of this patient today ____ minutes. Physical Exam Vital Signs: Vital Signs: Last Vital Signs Temp 97.5 F 01/17/23 12:00 Pulse 85 01/17/23 12:00 Resp 18 01/17/23 12:00 BP 159/73 H 01/17/23 12:00 Pulse Ox 92 01/17/23 12:00 O2 Del Method Room Air 01/17/23 12:00 BMI result Body Mass Index 34.0 DS: Data Data Completed and Pending Labs on day of discharge: Laboratory Results - last 24 hr 01/16/23 01/17/23 01/17/23 16:30 05:40 05:40 WBC 12.8 H RBC 3.94 L Hgb 11.8 L Hct 38.0 MCV 96.4 MCH 29.9 MCHC 31.1 RDW 15.8 Plt Count 308 MPV 11.8 Immature Gran % (Auto) 0.4 Neut % (Auto) 67.3 Lymph % (Auto) 20.2 [place] % (Auto) 11.8 H Eos % (Auto) 0.2 Baso % (Auto) 0.1 Lymph # (Auto) 2.6 [place] # (Auto) 1.5 H Eos # (Auto) 0.0 Baso # (Auto) 0.0 Abs Immat Gran (auto) 0.05 H Absolute Neuts (auto) 8.6 H Absolute Nucleated RBC 0.000 Nucleated RBC % (auto) 0.0 Smear Tech's Comments VERIFIED Sodium 146 H Potassium 4.1 Chloride 111 H Carbon Dioxide 21 L Anion Gap 18 BUN 23 H Creatinine 1.39 Estim Creat Clear Calc 33.7 Estimated GFR 36 Random Glucose 102 Calcium 9.8 Urine Color Yellow Urine Appearance Clear Urine pH 5.5 Ur Specific [place] 1.020 Urine Protein 30 (1+) H Urine Glucose (UA) Negative Urine Ketones Trace Urine Blood Negative Urine Nitrite Positive H Ur Leukocyte Esterase Moderate (2+) H Urine RBC 0-2 Urine WBC 11-20 H Ur Squamous Epith Cells 6-10 Urine Bacteria 4+ Hyaline Casts 0-2 Preliminary micro results at discharge 01/16/23 16:44 Urine Culture - Preliminary Urine clean catch - Urine spencer top Culture too young to evaluate. Discharge Plan Discharge Referrals: Jen Yeboah MD [Primary Care Provider] - 1 Week Discharge Medications: No Action furosemide 40 mg tablet 40 - 80 mg PO DAILY metoprolol succinate 100 mg tablet extended release 24 hr 100 mg PO BID olanzapine 5 mg tablet 2.5 mg PO QAM olanzapine 5 mg tablet 5 mg PO BEDTIME spironolactone 25 mg tablet 25 mg PO DAILY levothyroxine 100 mcg tablet 100 mcg PO DAILY azelastine 137 mcg (0.1 %) aerosol,spray 2 spray intranasal BID PRN (Reason: allergies) ipratropium bromide 21 mcg (0.03 %) spray,non-aerosol 1 spray intranasal BID rosuvastatin 40 mg tablet 40 mg PO BEDTIME vilazodone 20 mg tablet 20 mg PO DAILY Eliquis 5 mg tablet 5 mg PO BID
--- NOTE | 2023-01-17 14:58 | MHC.CM.PN ---
PATIENT AND DAUGHTER (IN ROOM) AWARE THAT PATIENT DOES NOT HAVE A 3 MIDNIGHT QUALIFYING STRAY FOR A REHAB BED OFFER. THEY ARE AWARE THAT THEY CAN PAY PRIVATELY AND THERE ARE OFFERS FOR A BED IF THEY DECIDE. REFERRAL TO [facility] FOR HOME P.T. NEEDS. PLAN IS HOME TOMORROW
[2023-01-17] MEDS: OLANZapine 5 MG TABLET PO (19:50)
[2023-01-17] MEDS: Atorvastatin Calcium 80 MG TABLET PO (19:50)
[2023-01-18] VITALS (8 sets, daily range): BP systolic 104–150; BP diastolic 54–74; PULSE 60–73; RESP 16–18; TEMP 36.1–36.3; O2SAT 90–97
[2023-01-18] MEDS: Levothyroxine Sodium 100 MCG TABLET PO (06:12)
[2023-01-18] MEDS: Metoprolol Succinate ER 100 MG TAB.ER.24H PO ×2 (10:35→20:18)
[2023-01-18] MEDS: OLANZapine 2.5 MG TABLET PO (10:35)
[2023-01-18] MEDS: Apixaban 5 MG TABLET PO ×2 (10:35→20:18)
[2023-01-18] MEDS: Vilazodone HCL 20 MG TABLET PO (10:35)
[2023-01-18] MEDS: 0.9 % Sodium Chloride Flush 3 ML SYRINGE IVFLUSH ×2 (10:36→20:18)
[2023-01-18] MEDS: cefTRIAXone sodium 1 GM in 0.9 % Sodium Chloride 50 ML IV (13:10)
[2023-01-18] MEDS: Azithromycin 500 MG in 0.9 % Sodium Chloride 250 ML 125 MG IV (13:53)
--- NOTE | 2023-01-18 14:29 | P.PNIM_ITS ---
Subjective Subjective Date of Service: 01/18/23 Interval History: Remains somnolent but arousable. No acute issues Review of Systems Unable to obtain Physical Exam Vital Signs: Vital Signs: Last Vital Signs Temp 97 F 01/18/23 11:42 Pulse 73 01/18/23 11:42 Resp 18 01/18/23 11:42 BP 136/62 01/18/23 11:42 Pulse Ox 94 01/18/23 11:42 O2 Del Method Room Air 01/18/23 11:42 BMI result Body Mass Index 34.0 Const: Other: Somnolent arousable no acute distress Resp: Other: Clear to auscultation bilaterally no rales rhonchi or wheezes Cardio: Other: No S4; positive S1-S2; no S3 murmurs rubs or gallops GI: Other: Soft nontender nondistended normoactive bowel sounds Extrem: Other: No edema bilaterally Objective Data Active Medications Acetaminophen (Acetaminophen 325 Mg Tablet) 650 mg PO Q6H PRN PRN Reason: Pain, Mild (Pain Scale 1-3) Apixaban (Apixaban 5 Mg Tablet) 5 mg PO BID [facility] Last Admin: 01/18/23 10:35 Dose: 5 mg Documented By: ANNA MARIE Atorvastatin Calcium (Atorvastatin Calcium 80 Mg Tablet) 80 mg PO BEDTIME [facility] Last Admin: 01/17/23 19:50 Dose: 80 mg Documented By: JERONIMO Azelastine HCl (Azelastine Hcl Nasal 137 Mcg/[place] 30 Ml) 2 spray NOSTRIL-B BID PRN PRN Reason: allergies Ceftriaxone Sodium 1 gm/ (Sodium Chloride) 50 mls @ 100 mls/hr IV Q24H [facility] Last Infusion: 01/18/23 14:08 Dose: 0 mls/hr Documented By: ANNA MARIE Azithromycin 500 mg/ Sodium (Chloride) 250 mls @ 125 mls/hr IV Q24H [facility] Last Admin: 01/18/23 13:53 Dose: 125 mls/hr Documented By: ANNA MARIE Ipratropium [place] (Ipratropium [place] Abraham 0.03 % 30 Ml [place]) 1 spray NOSTRIL-B BID [facility] Last Admin: 01/18/23 14:02 Dose: Not Given Documented By: ANNA MARIE Non-Admin Reason: Patient Refused Levothyroxine Sodium (Levothyroxine Sodium 100 Mcg Tablet) 100 mcg PO DAILY@0600 [facility] Last Admin: 01/18/23 06:12 Dose: 100 mcg Documented By: JERONIMO Metoprolol Succinate (Metoprolol Succinate Er 100 Mg Tab.Er.24h) 100 mg PO BID [facility]; Protocol Last Admin: 01/18/23 10:35 Dose: 100 mg Documented By: ANNA MARIE Olanzapine (Olanzapine 2.5 Mg Tablet) 2.5 mg PO DAILY [facility] Last Admin: 01/18/23 10:35 Dose: 2.5 mg Documented By: ANNA MARIE Olanzapine (Olanzapine 5 Mg Tablet) 5 mg PO BEDTIME [facility] Last Admin: 01/17/23 19:50 Dose: 5 mg Documented By: JERONIMO Ondansetron HCl (Ondansetron Hcl 4 Mg/2 Ml Vial) 4 mg IVPUSH Q8H PRN PRN Reason: Nausea and Vomiting Sodium Chloride (0.9 % Sodium Chloride Flush 3 Ml Syringe) 3 ml IVFLUSH QSHIFT [facility] Last Admin: 01/18/23 10:36 Dose: 3 ml Documented By: ANNA MARIE Vilazodone HCl (Vilazodone Hcl 20 Mg Tablet) 20 mg PO DAILY [facility] Last Admin: 01/18/23 10:35 Dose: 20 mg Documented By: ANNA MARIE Labs 01/17/23 05:40 01/17/23 05:40 Microbiology Microbiology Results: Microbiology 01/16/23 16:44 Urine Culture - Preliminary Urine clean catch - Urine spencer top Gram negative harvey 01/16/23 14:03 Blood Culture - Preliminary Blood - Venous No growth after 24 hours. 01/16/23 14:02 Blood Culture - Preliminary Blood - Venous No growth after 24 hours. Assessment and Plan (1) Encephalopathy: Status: Acute (2) Pneumonia: Status: Acute (3) PAOLA (acute kidney injury): Status: Acute Plan 82 year old women admitted with acute metabolic encephalopathy secondary to CAP/UTI 1.Acute metabolic encephalopathy secondary to CAP/UTI GNR -continue Rocephin/Azithromycin(2) -titrate O2 to maintain sats greater than equal to 92% -blood cultures negative times 24 hours 2.PAOLA on ckd 4. -back to baseline -folow renals/divalents -restart diuresis when appropriate 3.ARMIDA -cpap as ordered 4. Chronic atrial fibrillation -rate control adequate -continue Eliquis at current dosing Eliquis Full code Requires ongoing hospitalization for IV antibiotics to treat community-acquired pneumonia and UTI pending ID Time Spent With Patient Time: Total time managing care of this patient today ____ minutes. Quality Stroke Does the patient have a stroke diagnosis?: No VTE Prior VTE?: No VTE Risk Level:: Medical - moderate - high VTE Device Contraindication: Treatment Not Indicated VTE Drug Contraindication: N/A - Med Ordered
[2023-01-18] MEDS: OLANZapine 5 MG TABLET PO (20:18)
[2023-01-18] MEDS: Atorvastatin Calcium 80 MG TABLET PO (20:18)
[2023-01-18] MEDS: Ipratropium Bromide Nas 0.03 % 30 ML SPRAY 1 SPRAY NOSTRIL-B (20:18)
[2023-01-19 03:02] VITALS: BP 149/79; PULSE 71; RESP 18; TEMP 36.2; O2SAT 93
[2023-01-19] MEDS: Levothyroxine Sodium 100 MCG TABLET PO (05:55)
[2023-01-19 06:10] LABS: MANUAL DIFF FLAG NO
[2023-01-19 06:13] LABS: Basophils Percent Auto 0.1 % (0-2); Eosinophils Absolute Auto 0.1 X10*3/uL (0.0-0.4); Eosinophils Percent Auto 0.8 % (0-4); Hematocrit 35.3 % (37.0-47.0); Imm Gran Abs Auto 0.03 X10*3/uL (0.00-0.03); Imm Gran Pct Auto 0.3 % (0.0-0.4); Lymphocytes Absolute Auto 2.5 X10*3/uL (1.2-4.9); Lymphocytes Percent Auto 27.8 % (20-40); Mean Corpuscular HGB Conc 31.2 g/dl (31.0-35.0); Mean Corpuscular Hemoglobin 31.1 pg (27.0-33.0); Mean Corpuscular Volume 99.7 fL (80.0-98.0); Mean Platelet Volume 11.3 fL (9.4-12.3); Monocytes Absolute Auto 1.2 X10*3/uL (0.1-1.2); Monocytes Percent Auto 12.7 % (2-11); Neutrophils Absolute Auto 5.3 x10*3/uL (2.0-8.3); Neutrophils Percent Auto 58.3 % (45-73); Platelet Count 269 X10*3/uL (160-400); Red Blood Count 3.54 X10*6/uL (4.20-5.50); Red Cell Distribution Width 15.9 % (11.0-16.0); White Blood Count 9.1 X10*3/uL (4.8-10.8)
[2023-01-19 06:28] LABS: Alanine Aminotransferase 14 U/L (0-31); Albumin Level 3.1 g/dL (3.5-5.0); Alkaline Phosphatase 65 U/L (39-117); Anion Gap 13 (12-20); Aspartate Amino Transferase 18 U/L (5-31); Bilirubin Total 0.3 mg/dL (0.0-1.0); Blood Urea Nitrogen 15 mg/dL (9-16); Calcium 9.2 mg/dL (8.4-10.2); Carbon Dioxide 24 mmol/L (22-29); Chloride 113 mmol/L (96-108); Creatinine Clr Calc Pharmacy 31.9; Estimated Glomerular Filt Rate 34; Glucose Fasting 91 mg/dL (60-99); Potassium 3.9 mmol/L (3.3-5.1); Sodium 146 mmol/L (135-145); Total Protein 5.2 g/dL (6.5-8.0)
[2023-01-19 07:10] VITALS: BP 139/67; PULSE 58; RESP 20; TEMP 36.1; O2SAT 95
[2023-01-19] MEDS: Vilazodone HCL 20 MG TABLET PO (09:19)
[2023-01-19] MEDS: OLANZapine 2.5 MG TABLET PO (09:19)
[2023-01-19] MEDS: Metoprolol Succinate ER 100 MG TAB.ER.24H PO (09:19)
[2023-01-19] MEDS: Apixaban 5 MG TABLET PO (09:20)
[2023-01-19] MEDS: 0.9 % Sodium Chloride Flush 3 ML SYRINGE IVFLUSH (09:21)
[2023-01-19 10:05] VITALS: PULSE 84; O2SAT 95
[2023-01-19 11:34] VITALS: BP 116/57; PULSE 66; RESP 18; TEMP 36.1; O2SAT 94
--- NOTE | 2023-01-19 12:08 | P.DS_ITS ---
DS: Providers Provider Date of Service: 01/19/23 Date of admission: 01/16/23 16:09 Date of discharge: 01/19/23 Primary care physician: Jen Yeboah MD DS: Diagnosis Discharge Diagnosis (1) Encephalopathy: Status: Acute (2) Pneumonia: Status: Acute (3) PAOLA (acute kidney injury): Status: Acute DS: Summary Hospital Course Hospital Course: 82 year old women presenting with increased confusion over the last several days with some mild shortness of breath.? According to the patient's daughter this had happened previously about a year ago and was related to medication changes.? Patient denied fever, chills, nausea, vomiting, diarrhea.? Her daughter reported that she had called her today and told her that her other sister was in the room with her boyfriend but in fact her daughter lives in another state and is .? Patient seems pleasantly confused but alert to self and place.? Chest x-ray with noted right lower lobe pneumonia, head CT negative for acute abnormality.? Sodium 146, creatinine 1.75, patient with a history chronic kidney disease.? Vital signs stable.? Patient was given a dose of Rocephin, azithromycin, IV fluid.? She will be admitted for further management and treatment of acute to encephalopathy secondary to community-acquired pneumonia. Acute metabolic encephalopathy secondary to CAP continue Rocephin and azithromycin as prescribed supplemental oxygen as needed follow blood cx monitor mental status PAOLA on ckd 4. Resolved close to baseline likely secondary to dehydration hold lasix and spironolactone for now, restart if renal function allows follow BMP chronic LE edema hold lasix and spironolactone for now due to PAOLA. restart as appropriate mental health continue home medications ARMIDA cpap Obesity. BMI 31.0 Discussed importance of weight management as this may be contributing to worsening of other comorbidities Time Spent with Patient Time attestation: Total time managing care of this patient today ____ minutes. Discharge coordination time: Greater than 30 minutes Quality: Safe Use of Opioids Does Pt have an Active Cancer Diagnosis on the Problem List?: No Quality: Stroke Does the patient have a stroke diagnosis?: No Physical Exam Vital Signs: Vital Signs: Last Vital Signs Temp 97 F 01/19/23 11:34 Pulse 66 01/19/23 11:34 Resp 18 01/19/23 11:34 BP 116/57 L 01/19/23 11:34 Pulse Ox 94 01/19/23 11:34 O2 Del Method Room Air 01/19/23 11:34 BMI result Body Mass Index 34.0 Const: Other: Somnolent arousable no acute distress Resp: Other: Clear to auscultation bilaterally no rales rhonchi or wheezes Cardio: Other: No S4; positive S1-S2; no S3 murmurs rubs or gallops GI: Other: Soft nontender nondistended normoactive bowel sounds Extrem: Other: No edema bilaterally DS: Data Data Completed and Pending Labs on day of discharge: Laboratory Results - last 24 hr 01/19/23 01/19/23 05:50 05:50 WBC 9.1 RBC 3.54 L Hgb 11.0 L Hct 35.3 L MCV 99.7 H MCH 31.1 MCHC 31.2 RDW 15.9 Plt Count 269 MPV 11.3 Immature Gran % (Auto) 0.3 Neut % (Auto) 58.3 Lymph % (Auto) 27.8 [place] % (Auto) 12.7 H Eos % (Auto) 0.8 Baso % (Auto) 0.1 Lymph # (Auto) 2.5 [place] # (Auto) 1.2 Eos # (Auto) 0.1 Baso # (Auto) 0.0 Abs Immat Gran (auto) 0.03 Absolute Neuts (auto) 5.3 Absolute Nucleated RBC 0.000 Nucleated RBC % (auto) 0.0 Sodium 146 H Potassium 3.9 Chloride 113 H Carbon Dioxide 24 Anion Gap 13 BUN 15 Creatinine 1.47 H Estim Creat Clear Calc 31.9 Estimated GFR 34 Fasting Glucose 91 Calcium 9.2 D Total Bilirubin 0.3 AST 18 ALT 14 Alkaline Phosphatase 65 Total Protein 5.2 L Albumin 3.1 L Preliminary micro results at discharge 01/16/23 14:03 Blood Culture - Preliminary Blood - Venous No growth after 48 hours. 01/16/23 14:02 Blood Culture - Preliminary Blood - Venous No growth after 48 hours. 01/16/23 16:44 Urine Culture - Preliminary Urine clean catch - Urine spencer top Gram negative harvey Discharge Plan Discharge Anticipated Discharge Date/Time: 01/19/23 12:06 Patient Disposition: Home Health Service Discharge Diagnosis: CAP PAOLA on CKD 4 Referrals: Jen Yeboah MD [Primary Care Provider] - 1 Week Discharge Medications: New cefuroxime axetil 500 mg tablet 500 mg PO BID Qty: 8 0RF azithromycin 500 mg tablet 500 mg PO DAILY 4 Days Qty: 4 0RF Continued furosemide 40 mg tablet 40 - 80 mg PO DAILY metoprolol succinate 100 mg tablet extended release 24 hr 100 mg PO BID olanzapine 5 mg tablet 2.5 mg PO QAM olanzapine 5 mg tablet 5 mg PO BEDTIME spironolactone 25 mg tablet 25 mg PO DAILY levothyroxine 100 mcg tablet 100 mcg PO DAILY azelastine 137 mcg (0.1 %) aerosol,spray 2 spray intranasal BID PRN (Reason: allergies) ipratropium bromide 21 mcg (0.03 %) spray,non-aerosol 1 spray intranasal BID rosuvastatin 40 mg tablet 40 mg PO BEDTIME vilazodone 20 mg tablet 20 mg PO DAILY Eliquis 5 mg tablet 5 mg PO BID Discharge Orders: Discharge Order (Routine); Ordered 01/19/23 Ordered By: Jose Francisco Persaud Diet: Advance to usual diet Activity on Discharge: As tolerated Stand Alone Forms: Patient Portal Discharge page Care Plan Goals: Complete resolution of symptoms Health Concerns: CAP PAOLA on CKD 4 Plan of Treatment: Follow-up with primary care provider as needed Take all medications as prescribed Assessment: See discharge summary
--- NOTE | 2023-01-19 12:39 | MHC.CM.PN ---
Addendum entered by Vannessa Loyola, FELIZ 01/19/23 13:22: [facility] TO TRANSPORT [facility]AT[facility] STATES THAT [facility] IS PRIME. CM FINDS THAT MEDICARE IS PRIME [facility] AGREED TO DC TRANSFER FORTUNATO MADE AWARE Original Note: 3 pm transport request to [facility] RN, Unit, patient, and family (in room) aware
[2023-01-19] MEDS: cefTRIAXone sodium 1 GM in 0.9 % Sodium Chloride 50 ML IV (13:34)
--- NOTE | 2023-01-19 13:37 | MHC.CM.PN ---
IMM 01/18 IN CHART
[2023-01-19 15:31] VITALS: BP 120/59; PULSE 70; RESP 18; TEMP 36; O2SAT 92
--- NOTE | 2023-02-20 08:10 | CONS_ITS ---
DATE OF SERVICE: 02/17/2023 REASON FOR CONSULTATION: Consult requested by the medical team to evaluate and help manage the patient's acute kidney injury. HISTORY OF PRESENT ILLNESS: The patient is an 82-year-old female who presents to the hospital with increasing confusion over the several days. She also had shortness of breath. According to the ER report, the patient had a similar episode occurred when her medication was changed. There was no fever, chills, nausea, vomiting, diarrhea. She was pleasantly confused in the ER, but alert and was able to follow commands. Chest x-ray showed right lower lobe pneumonia. CT was negative for acute abnormalities. Sodium was 146. Creatinine was 1.75. She had basically a baseline CKD. She is hemodynamically stable. She was initially on Rocephin and azithromycin and IV fluids and admitted to the hospital for further evaluation and management. REVIEW OF SYSTEMS: As noted above. Other systems were reviewed, negative. PAST MEDICAL HISTORY: History of atrial fibrillation, history of CHF, depression, hyperlipidemia, hypothyroidism, mild CKD. FAMILY HISTORY: Father has history of stroke. PAST SURGICAL HISTORY: History of knee surgery, hysterectomy. SOCIAL HISTORY: Patient does not drink or smoke. ALLERGIES: INCLUDE LEVOFLOXACIN, PENICILLIN. MEDICATIONS: At home include apixaban nasal spray, furosemide 40 daily, levothyroxine, metoprolol, rosuvastatin, spironolactone, and Vilazodone. PHYSICAL EXAMINATION: GENERAL: Patient is resting in bed. Awake, alert, able to follow commands. VITAL SIGNS: Blood pressure was 141/60, pulse 94, afebrile. HEENT: Pupils equal, round, and reactive bilaterally light. NECK: No jugular venous distention was noted. Neck was supple. No thyromegaly was noted. Oral mucosa was moist. There was no scleral icterus or conjunctival congestion. CARDIOVASCULAR SYSTEM: S1, S2 without rub or murmur. RESPIRATORY SYSTEM: . No crepitation or rhonchi was noted. ABDOMEN: Soft, nontender. No guarding or rigidity. Bowel sounds normal. EXTREMITIES: Showed no edema. There was no peripheral cyanosis or clubbing. NEURO: Essentially nonfocal. LABORATORY DATA: Labs done today. Sodium 140, potassium 4.0, chloride 114, CO2 18, BUN 34, creatinine 2.04. Hemoglobin 11.8, hematocrit 37, WBC 11, platelets 331. The patient's urinalysis shows yellow urine, specific gravity 1.015, pH , glucose negative, RBCs and WBCs were normal. Peak creatinine was 3.36. Baseline creatinine around 1.4. IMPRESSION: 1. Elderly female with acute kidney injury. Acute kidney injury in this patient likely secondary to prerenal azotemia. The patient was also on diuretics, which could have contributed to worsening renal function. We need to rule out obstruction. Based on the urine testing, I doubt the patient has acute glomerulonephritis/interstitial disease. 2. Chronic kidney disease stage 3, at baseline. 3. Metabolic encephalopathy. I doubt this is due to uremia and could be due to medications . 4. History of congestive heart failure, presently hypovolemic. 5. Obstructive sleep apnea. RECOMMENDATION: 1. At this juncture, I recommend checking spot urine for electrolytes, protein, and creatinine which I have ordered this. I also ordered a renal ultrasound for the patient to assess the size of the kidney and to rule out obstruction. I agree with discontinuation of the diuretics. 2. I agree with . 3. Avoid nephrotoxins. I discussed with the medical team. Thank you for allowing me to participate in medical management of this patient. MD AUTUMN Gracia/J CARLOS / [id number]
== END 2023-01-19 15:50 | disposition skilled nursing facility (03) | DRG 193 ==
LOC: HO.ED 14:19 → HO.EDOVER 16:26 → HO.S3 21:26
PROVIDERS: Physician Assistant; Admitting Provider Nurse Practitioner Acute Care; Emergency Provider Emergency Medicine; PCP Family Medicine; Visit Provider Hospitalist
DX: J18.9 Pneumonia, unspecified organism (principal); B37.6 Candidal endocarditis; G93.41 Metabolic encephalopathy; N17.9 Acute kidney failure, unspecified; N18.4 Chronic kidney disease, stage 4 (severe); I48.20 Chronic atrial fibrillation, unspecified; N39.0 Urinary tract infection, site not specified; E03.9 Hypothyroidism, unspecified; E78.5 Hyperlipidemia, unspecified; G47.33 Obstructive sleep apnea (adult) (pediatric); E66.9 Obesity, unspecified; E86.0 Dehydration; Z68.31 Body mass index [BMI] 31.0-31.9, adult; F32.A Depression, unspecified; Z88.0 Allergy status to penicillin; Z79.01 Long term (current) use of anticoagulants; Z79.890 Hormone replacement therapy; Z79.899 Other long term (current) drug therapy
CPT/HCPCS: 36415; 70450; 71045; 80048; 80053; 80076; 81001; 82140; 83605; 83735; 83880; 84484; 85025; 85610; 87040; 87086; 87088; 87186; 93005; 94660; 97116; 97162; 99285; J0456; J0696

== ENCOUNTER 2023-02-16 06:27 | Inpatient (IN) | payer MEDICARE, OTHER, SELFPAY ==
[2023-02-16] VITALS (8 sets, daily range): BP systolic 109–140; BP diastolic 49–65; PULSE 66–80; RESP 16–20; TEMP 35.9–37; O2SAT 91–100; BMI 33.4
--- NOTE | 2023-02-16 06:42 | MHC.EDTECH ---
Pt arrived by ambulance, was changed into hospital attire and placed on cardiac rn. VS taken and call nelson placed within reach.
--- NOTE | 2023-02-16 07:12 | ED.GENADULT ---
HPI - General Adult General Chief complaint: General Medical Stated complaint: hallucinations Time Seen by Provider: 02/16/23 07:02 History of Present Illness HPI narrative: Patient is an 82-year-old female with a history of pulmonary emboli and atrial fibrillation in the past. Currently on Eliquis. Presented today being at home having hallucination about and having someone that is 260 lb in her living room. Diaper since taking herself. Patient had previous urinary tract infection when this happen. Denies any head trauma. Denies any fever chills denies any abdominal pain. Denies any nausea vomiting. Related Data Home Medications Medication Instructions Recorded Confirmed apixaban 5 mg tablet (Eliquis) 5 mg PO BID 01/16/23 01/16/23 azelastine 137 mcg (0.1 %) nasal 2 spray intranasal BID PRN 01/16/23 01/16/23 spray aerosol allergies furosemide 40 mg tablet 40 - 80 mg PO DAILY 01/16/23 01/16/23 ipratropium bromide 21 mcg (0.03 1 spray intranasal BID 01/16/23 01/16/23 %) nasal spray levothyroxine 100 mcg tablet 100 mcg PO DAILY 01/16/23 01/16/23 metoprolol succinate 100 mg 100 mg PO BID 01/16/23 01/16/23 tablet,extended release 24 hr olanzapine 5 mg tablet 2.5 mg PO QAM 01/16/23 01/16/23 olanzapine 5 mg tablet 5 mg PO BEDTIME 01/16/23 01/16/23 rosuvastatin 40 mg tablet 40 mg PO BEDTIME 01/16/23 01/16/23 spironolactone 25 mg tablet 25 mg PO DAILY 01/16/23 01/16/23 vilazodone 20 mg tablet 20 mg PO DAILY 01/16/23 01/16/23 Previous Rx's Medication Instructions Recorded azithromycin 500 mg tablet 500 mg PO DAILY 4 days #4 tabs 01/17/23 cefuroxime axetil 500 mg tablet 500 mg PO BID #8 tabs 01/17/23 Allergies Allergy/AdvReac Type Severity Reaction Status Date / Time levofloxacin [From LEVAQUIN] Allergy Unknown RASH Verified 01/16/23 22:56 penicillin G [PENICILLIN G] Allergy Unknown RASH Verified 01/16/23 22:56 Review of Systems Review of Systems: No fever no chills no chest pain. No pain on urination Yes all other systems are reviewed and are negative [facility] Past Medical History Attestation statement: The following information was validated with the patient. Medical History Afib CHF (congestive heart failure) Depression Hyperlipidemia Hypothyroidism Surgical History H/O knee surgery H/O: hysterectomy Family History Family History Father Stroke Social History Social History Household Members: None Housing: House Do you presently have visiting nurse or other home services: No Alcohol intake: never Patient Tobacco Use Status: Never used Tobacco Smoked in Last 30 Days: No Use of substances other than those prescribed or required for medical reasons: No Advance Directives: Yes Advance Directives Information Provided: No Advance Directives on File: No Advance Directives Date on File: 01/16/23 service: No Current occupational status: retired Physical Exam ED Vital Signs: Vital Signs - 24 hr 02/16/23 06:36 02/16/23 07:12 02/16/23 08:17 Temperature 98.6 F 97.9 F Pulse Rate 76 67 66 Respiratory Rate 16 16 18 Blood Pressure 122/65 110/49 L 109/51 L Pulse Oximetry 95 91 L 95 Oxygen Delivery Method Room Air Room Air Room Air BMI result Body Mass Index 33.4 Appearance: Alert. Oriented X3. No acute distress. Eyes: Pupils equal, round and reactive to light. ENT: Pharynx normal. Neck: Normal inspection. Neck supple. No lymph nodes noted. No crepitus CVS: Normal heart rate and rhythm. Pulses normal. Normal S1 and S2 Respiratory: No respiratory distress. Breath sounds normal. No Wheezing. No rales Abdomen: Soft and nontender. No rigidity. No distention. good BS x4 Skin: Skin warm and dry. Normal skin color. Normal skin turgor. Extremities: No lower extremity edema. Neurovascular intact to all extremities. No Lacerations. No Rash Neuro: Oriented X 3. No motor deficit. No sensory deficit. Moving all extermities. No slurred speech Medical Decision Making Medical Decision Making MDM Narrative: Patient is an 82-year-old female presents today with having generalized malaise hallucinations. Patient sees people that are not there. CT scan of the head was grossly negative for any acute evidence of bleeding. No mass. Patient's urine showed no signs of infection. Patient's electrolytes however showed elevated BUN and creatinine. Creatinine is 3 now baseline is 1.5. IV fluids ordered. Case discussed with the hospitalist team. Will rehydrate monitor closely. In stable condition. No evidence for sepsis. Patient's lactate was normal. No evidence of infection. Differential Diagnosis Dehydration, urinary tract infection, electrolyte disturbance, intracranial bleed/mass Admission/Observation Consideration of admission/observation: Escalation of care including admission/observation considered Consult Healthcare Provider Management of the patient was discussed with: Hospitalist Lab Data [facility] Lab Attestation statement: I reviewed the patient's lab results. 02/16/23 08:49 02/16/23 08:49 Labs: Lab Results 02/16/23 02/16/23 02/16/23 Range/Units 08:49 08:49 08:49 WBC 11.0 H (4.8-10.8) X10*3/uL RBC 3.90 L (4.20-5.50) X10*6/uL Hgb 11.8 L (12.0-16.0) g/dl Hct 37.3 (37.0-47.0) % MCV 95.6 (80.0-98.0) fL MCH 30.3 (27.0-33.0) pg MCHC 31.6 (31.0-35.0) g/dl RDW 14.6 (11.0-16.0) % Plt Count 331 (160-400) X10*3/uL MPV 10.2 (9.4-12.3) fL Immature Gran % (Auto) 0.3 (0.0-0.4) % Neut % (Auto) 75.5 H (45-73) % Lymph % (Auto) 16.4 L (20-40) % [place] % (Auto) 7.6 (2-11) % Eos % (Auto) 0.0 (0-4) % Baso % (Auto) 0.2 (0-2) % Lymph # (Auto) 1.8 (1.2-4.9) X10*3/uL [place] # (Auto) 0.8 (0.1-1.2) X10*3/uL Eos # (Auto) 0.0 (0.0-0.4) X10*3/uL Baso # (Auto) 0.0 (0.0-0.2) X10*3/uL Abs Immat Gran (auto) 0.03 (0.00-0.03) X10*3/uL Absolute Neuts (auto) 8.3 (2.0-8.3) x10*3/uL Absolute Nucleated RBC 0.000 (0.0-0.012) X10*3/uL Nucleated RBC % (auto) 0.0 (0.0-0.2) /100WBC Sodium 142 (135-145) mmol/L Potassium 4.1 (3.3-5.1) mmol/L Chloride 106 (96-108) mmol/L Carbon Dioxide 23 (22-29) mmol/L Anion Gap 17 (12-20) BUN 53 H (9-16) mg/dL Creatinine 3.36 H (0.5-1.4) mg/dL Estim Creat Clear Calc 12.8 Estimated GFR 13 Random Glucose 108 (60-115) mg/dL Lactic Acid 1.0 (0.5-2.0) mmol/L Calcium 10.2 D (8.4-10.2) mg/dL Total Bilirubin 0.5 (0.0-1.0) mg/dL AST 19 (5-31) U/L ALT 11 (0-31) U/L Alkaline Phosphatase 84 (39-117) U/L Total Protein 7.7 (6.5-8.0) g/dL Albumin 4.5 (3.5-5.0) g/dL Urine Color Urine Appearance Urine pH (5.0-9.0) Ur Specific [place] (1.005-1.025) Urine Protein (Neg-Trace) mg/dL Urine Glucose (UA) (Negative) mg/dL Urine Ketones (Negative) mg/dL Urine Blood (Negative) Urine Nitrite (Negative) Ur Leukocyte Esterase (Negative) Urine RBC (0-2) /HPF Urine WBC (0-5) /HPF Ur Squamous Epith Cells (0-2) /HPF Urine Bacteria (None Seen) Hyaline Casts (0-2) /LPF Granular Casts 02/16/23 Range/Units 09:00 WBC (4.8-10.8) X10*3/uL RBC (4.20-5.50) X10*6/uL Hgb (12.0-16.0) g/dl Hct (37.0-47.0) % MCV (80.0-98.0) fL MCH (27.0-33.0) pg MCHC (31.0-35.0) g/dl RDW (11.0-16.0) % Plt Count (160-400) X10*3/uL MPV (9.4-12.3) fL Immature Gran % (Auto) (0.0-0.4) % Neut % (Auto) (45-73) % Lymph % (Auto) (20-40) % [place] % (Auto) (2-11) % Eos % (Auto) (0-4) % Baso % (Auto) (0-2) % Lymph # (Auto) (1.2-4.9) X10*3/uL [place] # (Auto) (0.1-1.2) X10*3/uL Eos # (Auto) (0.0-0.4) X10*3/uL Baso # (Auto) (0.0-0.2) X10*3/uL Abs Immat Gran (auto) (0.00-0.03) X10*3/uL Absolute Neuts (auto) (2.0-8.3) x10*3/uL Absolute Nucleated RBC (0.0-0.012) X10*3/uL Nucleated RBC % (auto) (0.0-0.2) /100WBC Sodium (135-145) mmol/L Potassium (3.3-5.1) mmol/L Chloride (96-108) mmol/L Carbon Dioxide (22-29) mmol/L Anion Gap (12-20) BUN (9-16) mg/dL Creatinine (0.5-1.4) mg/dL Estim Creat Clear Calc Estimated GFR Random Glucose (60-115) mg/dL Lactic Acid (0.5-2.0) mmol/L Calcium (8.4-10.2) mg/dL Total Bilirubin (0.0-1.0) mg/dL AST (5-31) U/L ALT (0-31) U/L Alkaline Phosphatase (39-117) U/L Total Protein (6.5-8.0) g/dL Albumin (3.5-5.0) g/dL Urine Color Yellow Urine Appearance Clear Urine pH 5.5 (5.0-9.0) Ur Specific [place] 1.015 (1.005-1.025) Urine Protein 30 (1+) H (Neg-Trace) mg/dL Urine Glucose (UA) Negative (Negative) mg/dL Urine Ketones Negative (Negative) mg/dL Urine Blood Negative (Negative) Urine Nitrite Negative (Negative) Ur Leukocyte Esterase Trace H (Negative) Urine RBC 0-2 (0-2) /HPF Urine WBC 0-5 (0-5) /HPF Ur Squamous Epith Cells 6-10 (0-2) /HPF Urine Bacteria None Seen (None Seen) Hyaline Casts 11-20 (0-2) /LPF Granular Casts Present Independent Interpretation I performed an independent interpretation of an: EKG Interpretation: My interpretation of patient's EKG showed a sinus rhythm acute 1st degree AV block AK slightly prolonged QRS is normal QT interval is normal there is no acute ST segment elevation noted. My interpretation of patient's CT scan was grossly negative for any acute evidence of bleeding. Radiology Impression Discussion of test interpretation with radiology: I have reviewed the radiologist's reading. External Record Review External record reviewed: Inpatient record Discharge Plan Discharge Clinical Impression: PAOLA (acute kidney injury) Patient Disposition: Admitted As Inpatient Prescriptions: No Action furosemide 40 mg tablet 40 - 80 mg PO DAILY metoprolol succinate 100 mg tablet extended release 24 hr 100 mg PO BID olanzapine 5 mg tablet 2.5 mg PO QAM olanzapine 5 mg tablet 5 mg PO BEDTIME spironolactone 25 mg tablet 25 mg PO DAILY levothyroxine 100 mcg tablet 100 mcg PO DAILY azelastine 137 mcg (0.1 %) aerosol,spray 2 spray intranasal BID PRN (Reason: allergies) ipratropium bromide 21 mcg (0.03 %) spray,non-aerosol 1 spray intranasal BID rosuvastatin 40 mg tablet 40 mg PO BEDTIME vilazodone 20 mg tablet 20 mg PO DAILY Eliquis 5 mg tablet 5 mg PO BID cefuroxime axetil 500 mg tablet 500 mg PO BID Qty: 8 0RF azithromycin 500 mg tablet 500 mg PO DAILY 4 Days Qty: 4 0RF
--- NOTE | 2023-02-16 07:57 | PC.NURSE ---
assumed care of pt at 0700. pt resting quieting, denies pain and AH, stated that was last night, those hallucinations are gone.
--- NOTE | 2023-02-16 10:14 | PC.NURSE ---
22 g IV R forearm, fluids hung per order.
--- NOTE | 2023-02-16 10:38 | PHA.MEDREC ---
Pharmacy Consult ? Medication Reconciliation Pharmacy has completed the medication reconciliation. Spoke to patient to confirm meds. Patient states that they have to nasal sprays at home (ipratropium and azelastine) that they do not use.
--- NOTE | 2023-02-16 11:21 | PM.IMHP ---
History of Present Illness Date of Service: 02/16/23 Attending physician on admission: Diego Recinos Chief Complaint: confusion This is an 82-year-old female who was brought to the emergency department for evaluation of visual hallucinations and confusion. This reportedly began last night. Patient was recently hospitalized from January 16 until January 19 with acute kidney injury as well as pneumonia. She was discharged home with VNA services. Did her confusion it is unclear how she has been doing at home. She has Reportedly has been eating and drinking but states that she is trying to lose weight so has been decreasing her portion sizes. She denies any abdominal pain, vomiting, diarrhea. In the emergency department her workup was significant for PAOLA with a creatinine of 3.36. Urinalysis was negative for acute infection as was her chest x-ray and brain CT. She received a L of normal saline and the decision was made to admit her to the hospital for further management of acute kidney injury. Review of Systems Review of Systems: Yes all other systems are reviewed and are negative Constitutional: Constitutional: Denies chills and Denies fever(s) ENT: Denies dizziness Cardiovascular: Cardiovascular: Denies chest pain, Denies palpitations and Denies dyspnea Respiratory: Respiratory: Denies cough and Denies dyspnea Gastrointestinal: Gastrointestinal: Denies abdominal pain, Denies nausea and Denies vomiting Neurologic: Denies dizziness Endocrine: Endocrine: Denies palpitations [facility] Medical History Afib CHF (congestive heart failure) Depression Hyperlipidemia Hypothyroidism Functional capacity: uses cane/walker Family History Father Stroke Surgical History H/O knee surgery H/O: hysterectomy Social History Household Members: None Housing: House Do you presently have visiting nurse or other home services: No Alcohol intake: never Patient Tobacco Use Status: Never used Tobacco Smoked in Last 30 Days: No Use of substances other than those prescribed or required for medical reasons: No Advance Directives: Yes Advance Directives Information Provided: No Advance Directives on File: No Advance Directives Date on File: 01/16/23 service: No Current occupational status: retired Meds Allergies Allergy/AdvReac Type Severity Reaction Status Date / Time levofloxacin [From LEVAQUIN] Allergy Unknown RASH Verified 01/16/23 22:56 penicillin G [PENICILLIN G] Allergy Unknown RASH Verified 01/16/23 22:56 Active Medications: Current Medications Acetaminophen (Acetaminophen 325 Mg Tablet) 650 mg PO Q6H PRN PRN Reason: Pain, Mild (Pain Scale 1-3) Apixaban (Apixaban 5 Mg Tablet) 5 mg PO BID [facility] Docusate Sodium (Docusate Sodium 100 Mg Capsule) 100 mg PO DAILY PRN PRN Reason: Constipation Levothyroxine Sodium (Levothyroxine Sodium 100 Mcg Tablet) 100 mcg PO DAILY@0600 [facility] Metoprolol Succinate (Metoprolol Succinate Er 100 Mg Tab.Er.24h) 100 mg PO BID [facility]; Protocol Olanzapine (Olanzapine 5 Mg Tablet) 5 mg PO DAILY [facility] Olanzapine (Olanzapine 10 Mg Tablet) 10 mg PO BEDTIME [facility] Pharmacy Consult (Consult Rx Perform Med Rec) 1 each MISCELLANE ONCE PRN PRN Reason: Consult order Sodium Chloride (0.9 % Sodium Chloride Flush 3 Ml Syringe) 3 ml IVFLUSH QSHIFT [facility] Vilazodone HCl (Vilazodone Hcl 20 Mg Tablet) 20 mg PO DAILY [facility] Home Medications Medication Instructions Recorded Confirmed Last Taken Type apixaban 5 mg tablet (Eliquis) 5 mg PO BID 01/16/23 02/16/23 02/15/23 History furosemide 40 mg tablet 40 mg PO DAILY 01/16/23 02/16/23 02/15/23 History levothyroxine 100 mcg tablet 100 mcg PO DAILY@0600 01/16/23 02/16/23 02/15/23 History metoprolol succinate 100 mg 100 mg PO BID 01/16/23 02/16/23 02/15/23 History tablet,extended release 24 hr olanzapine 5 mg tablet 10 mg PO BEDTIME 01/16/23 02/16/23 02/15/23 History rosuvastatin 40 mg tablet 40 mg PO BEDTIME 01/16/23 02/16/23 02/15/23 History spironolactone 25 mg tablet 25 mg PO DAILY 01/16/23 02/16/23 02/15/23 History vilazodone 20 mg tablet 20 mg PO DAILY 01/16/23 02/16/2323 History alendronate 70 mg tablet 70 mg PO FR 02/16/23 02/16/23 02/10/23 History olanzapine 5 mg tablet 5 mg PO DAILY 02/16/23 02/16/23 02/15/23 History Physical Exam Vital Signs and Narrative: Vital Signs: Last Vital Signs Temp 97.9 F 02/16/23 07:12 Pulse 69 02/16/23 10:00 Resp 18 02/16/23 10:00 BP 124/51 L 02/16/23 10:00 Pulse Ox 95 02/16/23 10:00 O2 Del Method Room Air 02/16/23 10:00 BMI result Body Mass Index 33.4 Const: General: comfortable, no acute distress, alert and awake Nutritional Appearance: overweight Orientation/consciousness: oriented to person Resp: Effort & Inspection: normal respiratory effort, able to speak in complete sentences, no respiratory distress and no use of accessory muscles Auscultation: clear to auscultation bilaterally Cardio: Rate: regular rate GI: Inspection: No distended Palpation (GI): Soft to palpation and nontender Neuro: Other: no focal deficits appreciated General: oriented to person, moves all extremities and CN's II-XI intact bilaterally Extrem: General: Yes no pedal edema Results Labs 02/16/23 08:49 02/16/23 08:49 Labs: Laboratory Results - last 24 hr 02/16/23 02/16/23 02/16/23 08:49 08:49 08:49 MCV 95.6 MCH 30.3 MCHC 31.6 RDW 14.6 Plt Count 331 MPV 10.2 Immature Gran % (Auto) 0.3 Neut % (Auto) 75.5 H Lymph % (Auto) 16.4 L [place] % (Auto) 7.6 Eos % (Auto) 0.0 Baso % (Auto) 0.2 Lymph # (Auto) 1.8 [place] # (Auto) 0.8 Eos # (Auto) 0.0 Baso # (Auto) 0.0 Abs Immat Gran (auto) 0.03 Absolute Neuts (auto) 8.3 Absolute Nucleated RBC 0.000 Nucleated RBC % (auto) 0.0 Anion Gap 17 Estim Creat Clear Calc 12.8 Estimated GFR 13 Random Glucose 108 Lactic Acid 1.0 Calcium 10.2 D Total Bilirubin 0.5 AST 19 ALT 11 Alkaline Phosphatase 84 Total Protein 7.7 Albumin 4.5 Urine Color Urine Appearance Urine pH Ur Specific [place] Urine Protein Urine Glucose (UA) Urine Ketones Urine Blood Urine Nitrite Ur Leukocyte Esterase Urine RBC Urine WBC Ur Squamous Epith Cells Urine Bacteria Hyaline Casts Granular Casts 02/16/23 09:00 MCV MCH MCHC RDW Plt Count MPV Immature Gran % (Auto) Neut % (Auto) Lymph % (Auto) [place] % (Auto) Eos % (Auto) Baso % (Auto) Lymph # (Auto) [place] # (Auto) Eos # (Auto) Baso # (Auto) Abs Immat Gran (auto) Absolute Neuts (auto) Absolute Nucleated RBC Nucleated RBC % (auto) Anion Gap Estim Creat Clear Calc Estimated GFR Random Glucose Lactic Acid Calcium Total Bilirubin AST ALT Alkaline Phosphatase Total Protein Albumin Urine Color Yellow Urine Appearance Clear Urine pH 5.5 Ur Specific [place] 1.015 Urine Protein 30 (1+) H Urine Glucose (UA) Negative Urine Ketones Negative Urine Blood Negative Urine Nitrite Negative Ur Leukocyte Esterase Trace H Urine RBC 0-2 Urine WBC 0-5 Ur Squamous Epith Cells 6-10 Urine Bacteria None Seen Hyaline Casts 11-20 Granular Casts Present Imaging Radiologist's Impressions: Impressions Head CT 02/16/23 08:31 IMPRESSION: No acute intracranial pathology. Chest X-Ray 02/16/23 10:19 IMPRESSION: No acute cardiopulmonary process. Assessment and Plan (1) PAOLA (acute kidney injury): Status: Acute Plan This is an 82-year-old female with history of atrial fibrillation on Eliquis, CKD 4, CHF, recent hospitalization for PAOLA and pneumonia who presents to the emergency department with confusion found to have PAOLA PAOLA on CKD3 Creatinine 3.39, baseline around 1.4 May be prerenal secondary to diuretics Hold Lasix, Aldactone Nephrology consult Continue gentle IV fluid Follow renal function closely, follow urine output Acute metabolic encephalopathy Likely secondary to PAOLA No evidence of acute infection at this time CHF, unspecified hold lasix, aldactone Chronic atrial fibrillation continue metoprolol continue AC with Eliquis mental health continue home medications ARMIDA cpap Obesity. BMI 31.0 Discussed importance of weight management as this may be contributing to worsening of other comorbidities DVT prophylaxis with eliquis HCP - daughter Fani Code status - full code Patient will likely require 2 midnight stay in the hospital for rehydration, close monitoring of renal function and specialist evaluation Time Spent With Patient Time: Total time managing care of this patient today ____ minutes. Quality Stroke Does the patient have a stroke diagnosis?: No VTE Prior VTE?: No VTE Risk Level:: Medical - moderate - high VTE Device Contraindication: N/A - Device Ordered VTE Drug Contraindication: N/A - Med Ordered
--- NOTE | 2023-02-16 12:23 | PC.NURSE ---
fluids hung per order.
--- NOTE | 2023-02-16 13:53 | PC.NURSE ---
report given to Kasey RN, pt aware of plan of care, daughter at bedside.
[2023-02-17 03:31] VITALS: BP 145/65; PULSE 72; RESP 14; TEMP 36.6; O2SAT 92
[2023-02-17 06:10] LABS: Anion Gap 15 (12-20); Blood Urea Nitrogen 34 mg/dL (9-16); Calcium 9.5 mg/dL (8.4-10.2); Carbon Dioxide 18 mmol/L (22-29); Chloride 114 mmol/L (96-108); Creatinine Clr Calc Pharmacy 21.1; Estimated Glomerular Filt Rate 23; Glucose Random 115 mg/dL (60-115); Sodium 143 mmol/L (135-145)
[2023-02-17 08:00] VITALS: BP 141/60; PULSE 71; RESP 16; TEMP 36.3; O2SAT 94
--- NOTE | 2023-02-17 15:08 | HO.PM.IMPN ---
Subjective Subjective Date of Service: 02/17/23 Interval History: seen and examined this morning follow up for PAOLA no overnight events still confused, no specific complaints Review of Systems Review of Systems: Yes all other systems are reviewed and are negative Constitutional Constitutional: Denies chills and Denies fever(s) ENT Ears, Nose, Mouth, and Throat: Denies dizziness Cardiovascular Cardiovascular: Denies chest pain, Denies palpitations and Denies dyspnea Respiratory Respiratory: Denies cough and Denies dyspnea Gastrointestinal Gastrointestinal: Denies abdominal pain, Denies nausea and Denies vomiting Neurologic Neurologic: Denies dizziness Endocrine Endocrine: Denies palpitations Physical Exam Vital Signs: Vital Signs: Last Vital Signs Temp 97.4 F 02/17/23 08:00 Pulse 71 02/17/23 08:00 Resp 16 02/17/23 08:00 BP 141/60 H 02/17/23 08:00 Pulse Ox 94 02/17/23 08:00 O2 Del Method Room Air 02/17/23 08:00 O2 Flow Rate 93 02/17/23 08:00 BMI result Body Mass Index 33.4 Const: General: cooperative and comfortable Nutritional Appearance: overweight Orientation/consciousness: oriented to person Resp: Effort & Inspection: normal respiratory effort, able to speak in complete sentences, no respiratory distress and no use of accessory muscles Auscultation: clear to auscultation bilaterally Cardio: Rate: regular rate GI: Inspection: No distended Palpation (GI): Soft to palpation and nontender Neuro: Other: no focal deficits appreciated General: oriented to person, moves all extremities and CN's II-XI intact bilaterally Extrem: General: Yes no pedal edema Objective Data Active Medications Acetaminophen (Acetaminophen 325 Mg Tablet) 650 mg PO Q6H PRN PRN Reason: Pain, Mild (Pain Scale 1-3) Apixaban (Apixaban 5 Mg Tablet) 5 mg PO BID [facility] Last Admin: 02/17/23 08:54 Dose: 5 mg Documented By: CINDY Docusate Sodium (Docusate Sodium 100 Mg Capsule) 100 mg PO DAILY PRN PRN Reason: Constipation Lactated Ringer's (Lr) 1,000 mls @ 100 mls/hr IVCONT .Q10H [facility] Last Admin: 02/17/23 08:54 Dose: 100 mls/hr Documented By: CINDY Levothyroxine Sodium (Levothyroxine Sodium 100 Mcg Tablet) 100 mcg PO DAILY@0600 [facility] Last Admin: 02/17/23 05:44 Dose: 100 mcg Documented By: RILEY Metoprolol Succinate (Metoprolol Succinate Er 100 Mg Tab.Er.24h) 100 mg PO BID [facility]; Protocol Last Admin: 02/17/23 08:53 Dose: 100 mg Documented By: CINDY Olanzapine (Olanzapine 5 Mg Tablet) 5 mg PO DAILY [facility] Last Admin: 02/17/23 08:53 Dose: 5 mg Documented By: CINDY Olanzapine (Olanzapine 10 Mg Tablet) 10 mg PO BEDTIME [facility] Last Admin: 02/16/23 19:43 Dose: 10 mg Documented By: EBENEZER Pharmacy Consult (Consult Rx Perform Med Rec) 1 each MISCELLANE ONCE PRN PRN Reason: Consult order Sodium Chloride (0.9 % Sodium Chloride Flush 3 Ml Syringe) 3 ml IVFLUSH QSHIFT [facility] Last Admin: 02/17/23 08:54 Dose: 3 ml Documented By: CINDY Vilazodone HCl (Vilazodone Hcl 20 Mg Tablet) 20 mg PO DAILY [facility] Last Admin: 02/17/23 08:53 Dose: 20 mg Documented By: CINDY Labs 02/16/23 08:49 02/17/23 05:25 Labs: Laboratory Results - last 24 hr 02/17/23 05:25 Anion Gap 15 Estim Creat Clear Calc 21.1 Estimated GFR 23 Random Glucose 115 Calcium 9.5 D Microbiology Microbiology Results: Microbiology 02/16/23 08:49 Blood Culture - Preliminary Blood - Venous No growth after 24 hours. 02/16/23 08:49 Blood Culture - Preliminary Blood - Venous No growth after 24 hours. Assessment and Plan (1) PAOLA (acute kidney injury): Status: Acute Plan This is an 82-year-old female with history of atrial fibrillation on Eliquis, CKD 4, CHF, recent hospitalization for PAOLA and pneumonia who presents to the emergency department with confusion found to have PAOLA PAOLA on CKD3 Improving. Creatinine 3.39 on admission, down to 2.04. baseline around 1.4 May be prerenal secondary to diuretics Hold Lasix, Aldactone Nephrology consult pending Continue gentle IV fluid Follow renal function closely, follow urine output Acute metabolic encephalopathy Likely secondary to PAOLA No evidence of acute infection at this time ammonia negative CHF, unspecified hold lasix, aldactone Chronic atrial fibrillation continue metoprolol continue AC with Eliquis mental health continue home medications ARMIDA cpap Obesity. BMI 31.0 Discussed importance of weight management as this may be contributing to worsening of other comorbidities DVT prophylaxis with eliquis HCP - daughter Fani Code status - full code attending - dr. estrada Patient will likely require 2 midnight stay in the hospital for rehydration, close monitoring of renal function and specialist evaluation Time Spent With Patient Time: Total time managing care of this patient today ____ minutes. Quality Stroke Does the patient have a stroke diagnosis?: No VTE Prior VTE?: No VTE Risk Level:: Medical - moderate - high VTE Device Contraindication: N/A - Device Ordered VTE Drug Contraindication: N/A - Med Ordered
[2023-02-17 15:28] VITALS: BP 138/63; PULSE 64; RESP 20; TEMP 36.9; O2SAT 94
--- NOTE | 2023-02-17 16:22 | MHC.CM.PN ---
Addendum entered by Jossie Girard 02/18/23 09:14: CORRECTION: PTS PCP IS [facility] Original Note: CM MET WITH PTS DAUGHTER AT BEDSIDE SHE REPORTS THE PT WAS LIVING ALONE BUT THE PLAN IS [facility]PC AFTER STR SHE SAYS THE PT WAS IN [facility] RECENTLY AND THAT IS WHERE SHE WOULD LIKE HER TO RETURN PT HAS A HCP ON FILE PCP: AUDRA [facility] DELIVERED DCP: STR AT [facility] VIA BLS TRANSPORT
[2023-02-17 18:57] VITALS: BP 105/69; PULSE 69; RESP 20; TEMP 37.1; O2SAT 96
[2023-02-17 19:43] VITALS: BP 144/66; PULSE 64
--- NOTE | 2023-02-17 22:09 | PM.PNNEP ---
Subjective Subjective Date of Service: 02/17/23 Interval history: seen and examined this morning Seen for PAOLA full consult dictated Physical Exam Vital Signs: Vital Signs: Last Vital Signs Temp 98.8 F 02/17/23 18:57 Pulse 64 02/17/23 19:43 Resp 20 02/17/23 18:57 BP 144/66 H 02/17/23 19:43 Pulse Ox 96 02/17/23 18:57 O2 Del Method Room Air 02/17/23 18:57 O2 Flow Rate 93 02/17/23 08:00 BMI result Body Mass Index 33.4 Objective Data Labs 02/16/23 08:49 02/17/23 05:25 Labs: Laboratory Results - last 24 hr 02/17/23 05:25 Sodium 143 Potassium 4.0 Chloride 114 H Carbon Dioxide 18 L Anion Gap 15 BUN 34 H Creatinine 2.04 H Estim Creat Clear Calc 21.1 Estimated GFR 23 Random Glucose 115 Calcium 9.5 D Microbiology Microbiology Results: Microbiology 02/16/23 08:49 Blood - Venous Blood Culture - Preliminary No growth after 24 hours. 02/16/23 08:49 Blood - Venous Blood Culture - Preliminary No growth after 24 hours. Procedures Date of Service Date of Service: 02/17/23 Assessment & Plan Time Spent With Patient Time: Total time managing care of this patient today ____ minutes. Progress Note: Quality Stroke Does the patient have a stroke diagnosis?: No
[2023-02-18] VITALS (7 sets, daily range): BP systolic 135–158; BP diastolic 65–74; PULSE 56–96; RESP 18–20; TEMP 36.2–36.8; O2SAT 91–99
--- NOTE | 2023-02-18 00:43 | MHC.PIE ---
p; blood cx + for [facility] in cluster i; dr encarnacion notified e; will cont to monitor
--- NOTE | 2023-02-18 11:05 | HO.PM.IMPN ---
Subjective Subjective Date of Service: 02/18/23 Interval History: seen and examined this morning follow up for PAOLA no overnight events still confused, no specific complaints Review of Systems Review of Systems: Yes all other systems are reviewed and are negative Constitutional Constitutional: Denies chills and Denies fever(s) ENT Ears, Nose, Mouth, and Throat: Denies dizziness Cardiovascular Cardiovascular: Denies chest pain, Denies palpitations and Denies dyspnea Respiratory Respiratory: Denies cough and Denies dyspnea Gastrointestinal Gastrointestinal: Denies abdominal pain, Denies nausea and Denies vomiting Neurologic Neurologic: Denies dizziness Endocrine Endocrine: Denies palpitations Physical Exam Vital Signs: Vital Signs: Last Vital Signs Temp 97.4 F 02/18/23 07:51 Pulse 60 02/18/23 07:51 Resp 18 02/18/23 07:51 BP 135/68 02/18/23 07:51 Pulse Ox 91 L 02/18/23 07:51 O2 Del Method Room Air 02/18/23 07:51 O2 Flow Rate 93 02/17/23 08:00 BMI result Body Mass Index 33.4 Appearing in no acute distress lung sounds are clear to auscultation heart regular rate rhythm, clear S1, S2 positive bowel sounds, abdomen is soft, nontender neuro patient is alert x3, no focal deficits Objective Data Active Medications Acetaminophen (Acetaminophen 325 Mg Tablet) 650 mg PO Q6H PRN PRN Reason: Pain, Mild (Pain Scale 1-3) Apixaban (Apixaban 5 Mg Tablet) 5 mg PO BID [facility] Last Admin: 02/18/23 07:43 Dose: 5 mg Documented By: MARTIR Docusate Sodium (Docusate Sodium 100 Mg Capsule) 100 mg PO DAILY PRN PRN Reason: Constipation Lactated Ringer's (Lr) 1,000 mls @ 100 mls/hr IVCONT .Q10H [facility] Last Admin: 02/18/23 04:58 Dose: 100 mls/hr Documented By: NIYAH Levothyroxine Sodium (Levothyroxine Sodium 100 Mcg Tablet) 100 mcg PO DAILY@0600 [facility] Last Admin: 02/18/23 06:27 Dose: 100 mcg Documented By: NIYAH Metoprolol Succinate (Metoprolol Succinate Er 100 Mg Tab.Er.24h) 100 mg PO BID [facility]; Protocol Last Admin: 02/18/23 07:43 Dose: 100 mg Documented By: MARTIR Olanzapine (Olanzapine 5 Mg Tablet) 5 mg PO DAILY [facility] Last Admin: 02/18/23 07:43 Dose: 5 mg Documented By: MARTIR Olanzapine (Olanzapine 10 Mg Tablet) 10 mg PO BEDTIME [facility] Last Admin: 02/17/23 19:44 Dose: 10 mg Documented By: EBENEZER Pharmacy Consult (Consult Rx Perform Med Rec) 1 each MISCELLANE ONCE PRN PRN Reason: Consult order Sodium Chloride (0.9 % Sodium Chloride Flush 3 Ml Syringe) 3 ml IVFLUSH QSHIFT [facility] Last Admin: 02/18/23 07:40 Dose: Not Given Documented By: MARTIR Non-Admin Reason: IV Running Vilazodone HCl (Vilazodone Hcl 20 Mg Tablet) 20 mg PO DAILY [facility] Last Admin: 02/18/23 07:43 Dose: 20 mg Documented By: MARTIR Labs 02/16/23 08:49 02/18/23 09:36 Labs: Laboratory Results - last 24 hr 02/18/23 09:36 Anion Gap 11 L Estim Creat Clear Calc 27.4 Estimated GFR 32 Random Glucose 121 H Calcium 9.6 Microbiology Microbiology Results: Microbiology 02/16/23 08:49 Blood Culture - Preliminary Blood - Venous No growth after 48 hours. 02/16/23 08:49 Blood Culture - Preliminary Blood - Venous Prelim: GPC Gram Stain only Assessment and Plan (1) PAOLA (acute kidney injury): Status: Acute Plan This is an 82-year-old female with history of atrial fibrillation on Eliquis, CKD 4, CHF, recent hospitalization for PAOLA and pneumonia who presents to the emergency department with confusion found to have PAOLA PAOLA on CKD3 Improving. Creatinine 3.39 on admission, down to 1.57, baseline around 1.4 prerenal secondary to diuretics Hold Lasix, Aldactone Nephrology consult pending Continue gentle IV fluid Follow renal function closely, follow urine output Acute metabolic encephalopathy. Mentation improving Likely secondary to PAOLA No evidence of acute infection at this time ammonia negative CHF, unspecified hold lasix, aldactone Chronic atrial fibrillation continue metoprolol continue AC with Eliquis mental health continue home medications ARMIDA cpap Obesity. BMI 33.4 Discussed importance of weight management as this may be contributing to worsening of other comorbidities DVT prophylaxis with eliquis Code status - full code attending - dr. Marroquin continued hopsital stay for rehydration, close monitoring of renal function and specialist evaluation due to PAOLA Time Spent With Patient Time: Total time managing care of this patient today ____ minutes. Quality Stroke Does the patient have a stroke diagnosis?: No VTE Prior VTE?: No VTE Risk Level:: Medical - moderate - high VTE Device Contraindication: N/A - Device Ordered VTE Drug Contraindication: N/A - Med Ordered
--- NOTE | 2023-02-18 14:08 | PM.PNNEP ---
Subjective Subjective Date of Service: 02/18/23 Interval history: seen and examined this morning follow up for PAOLA no overnight events still confused, no specific complaints Physical Exam Vital Signs: Vital Signs: Last Vital Signs Temp 97.4 F 02/18/23 07:51 Pulse 60 02/18/23 07:51 Resp 18 02/18/23 07:51 BP 135/68 02/18/23 07:51 Pulse Ox 91 L 02/18/23 07:51 O2 Del Method Room Air 02/18/23 07:51 O2 Flow Rate 93 02/17/23 08:00 BMI result Body Mass Index 33.4 Appearing in no acute distress lung sounds are clear to auscultation heart regular rate rhythm, clear S1, S2 positive bowel sounds, abdomen is soft, nontender neuro patient is alert x3, no focal deficits Objective Data Labs 02/16/23 08:49 02/18/23 09:36 Labs: Laboratory Results - last 24 hr 02/18/23 09:36 Sodium 144 Potassium 3.9 Chloride 114 H Carbon Dioxide 23 Anion Gap 11 L BUN 20 H Creatinine 1.57 H Estim Creat Clear Calc 27.4 Estimated GFR 32 Random Glucose 121 H Calcium 9.6 Microbiology Microbiology Results: Microbiology 02/16/23 08:49 Blood - Venous Blood Culture - Preliminary No growth after 48 hours. 02/16/23 08:49 Blood - Venous Blood Culture - Preliminary Prelim: [facility]PC Gram Stain only Procedures Date of Service Date of Service: 02/18/23 Assessment & Plan Assessment and plan (1) PAOLA (acute kidney injury): Status: Acute Plan PAOLA resolving Keep Pt hydrated Continue to hold nephrotoxins Thx Time Spent With Patient Time: Total time managing care of this patient today ____ minutes. Progress Note: Quality Stroke Does the patient have a stroke diagnosis?: No
[2023-02-19 04:00] VITALS: BP 145/65; PULSE 67; RESP 20; TEMP 36.6; O2SAT 93
[2023-02-19 07:41] VITALS: BP 190/83; PULSE 90; RESP 20; TEMP 36.6; O2SAT 95
[2023-02-19 09:12] VITALS: BP 156/84; PULSE 84
--- NOTE | 2023-02-19 10:32 | HO.PM.IMPN ---
Subjective Subjective Date of Service: 02/19/23 Review of Systems Follow up PAOLA on CKD feeling better sitting in front of sink washing up Physical Exam Vital Signs: Vital Signs: Last Vital Signs Temp 97.8 F 02/19/23 07:41 Pulse 84 02/19/23 09:12 Resp 20 02/19/23 07:41 BP 156/84 H 02/19/23 09:12 Pulse Ox 95 02/19/23 07:41 O2 Del Method Room Air 02/19/23 07:41 O2 Flow Rate 93 02/17/23 08:00 BMI result Body Mass Index 33.4 Appearing in no acute distress lung sounds are clear to auscultation heart regular rate rhythm, clear S1, S2 positive bowel sounds, abdomen is soft, nontender neuro patient is alert x3, no focal deficits Objective Data Active Medications Acetaminophen (Acetaminophen 325 Mg Tablet) 650 mg PO Q6H PRN PRN Reason: Pain, Mild (Pain Scale 1-3) Apixaban (Apixaban 5 Mg Tablet) 5 mg PO BID [facility] Last Admin: 02/19/23 09:18 Dose: 5 mg Documented By: TOMAS Docusate Sodium (Docusate Sodium 100 Mg Capsule) 100 mg PO DAILY PRN PRN Reason: Constipation Levothyroxine Sodium (Levothyroxine Sodium 100 Mcg Tablet) 100 mcg PO DAILY@0600 [facility] Last Admin: 02/19/23 06:13 Dose: 100 mcg Documented By: RICARDO Metoprolol Succinate (Metoprolol Succinate Er 100 Mg Tab.Er.24h) 100 mg PO BID [facility]; Protocol Last Admin: 02/19/23 09:18 Dose: 100 mg Documented By: TOMAS Olanzapine (Olanzapine 5 Mg Tablet) 5 mg PO DAILY [facility] Last Admin: 02/19/23 09:18 Dose: 5 mg Documented By: TOMAS Olanzapine (Olanzapine 10 Mg Tablet) 10 mg PO BEDTIME [facility] Last Admin: 02/18/23 20:48 Dose: 10 mg Documented By: BNENIE Pharmacy Consult (Consult Rx Perform Med Rec) 1 each MISCELLANE ONCE PRN PRN Reason: Consult order Sodium Chloride (0.9 % Sodium Chloride Flush 3 Ml Syringe) 3 ml IVFLUSH QSHIFT [facility] Last Admin: 02/19/23 07:04 Dose: Not Given Documented By: TOMAS Non-Admin Reason: IV Running Vilazodone HCl (Vilazodone Hcl 20 Mg Tablet) 20 mg PO DAILY [facility] Last Admin: 02/19/23 09:18 Dose: 20 mg Documented By: TOMAS Labs 02/16/23 08:49 02/18/23 09:36 Microbiology Microbiology Results: Microbiology 02/16/23 08:49 Blood Culture - Final Blood - Venous Coag negative Staphylococcus 02/16/23 08:49 Blood Culture - Preliminary Blood - Venous No growth after 48 hours. Assessment and Plan (1) PAOLA (acute kidney injury): Status: Acute Plan This is an 82-year-old female with history of atrial fibrillation on Eliquis, CKD 4, CHF, recent hospitalization for PAOLA and pneumonia who presents to the emergency department with confusion found to have PAOLA PAOLA on CKD3 Improving. Creatinine 3.39 on admission, down to 1.57, baseline around 1.4 prerenal secondary to diuretics Hold Lasix, Aldactone Nephrology consult>keep hydrated, hold nephrotoxins s/p IV fluid Follow renal function closely, follow urine output Acute metabolic encephalopathy. Mentation improving Likely secondary to PAOLA No evidence of acute infection at this time ammonia negative CHF, unspecified hold lasix, aldactone Chronic atrial fibrillation continue metoprolol continue AC with Eliquis mental health continue home medications ARMIDA cpap Obesity. BMI 33.4 Discussed importance of weight management as this may be contributing to worsening of other comorbidities DVT prophylaxis with eliquis Code status - full code attending - dr. Marroquin continued hopsital stay for rehydration, close monitoring of renal function and specialist evaluation due to PAOLA Time Spent With Patient Time: Total time managing care of this patient today ____ minutes. Quality Stroke Does the patient have a stroke diagnosis?: No VTE Prior VTE?: No VTE Risk Level:: Medical - moderate - high VTE Device Contraindication: N/A - Device Ordered VTE Drug Contraindication: N/A - Med Ordered
--- NOTE | 2023-02-19 14:39 | PM.PNNEP ---
Subjective Subjective Date of Service: 02/19/23 Interval history: seen and examined this morning follow up for PAOLA no overnight events still confused Physical Exam Vital Signs: Vital Signs: Last Vital Signs Temp 97.8 F 02/19/23 07:41 Pulse 84 02/19/23 09:12 Resp 20 02/19/23 07:41 BP 156/84 H 02/19/23 09:12 Pulse Ox 95 02/19/23 07:41 O2 Del Method Room Air 02/19/23 07:41 O2 Flow Rate 93 02/17/23 08:00 BMI result Body Mass Index 33.4 Objective Data Labs 02/16/23 08:49 02/18/23 09:36 Microbiology Microbiology Results: Microbiology 02/16/23 08:49 Blood - Venous Blood Culture - Final Coag negative Staphylococcus 02/16/23 08:49 Blood - Venous Blood Culture - Preliminary No growth after 48 hours. Procedures Date of Service Date of Service: 02/19/23 Assessment & Plan Assessment and plan (1) PAOLA (acute kidney injury): Status: Acute Plan PAOLA resolving Keep Pt hydrated Continue to hold nephrotoxins Thx Time Spent With Patient Time: Total time managing care of this patient today ____ minutes. Progress Note: Quality Stroke Does the patient have a stroke diagnosis?: No
[2023-02-19 15:46] VITALS: BP 171/77; PULSE 68; RESP 20; TEMP 36.2; O2SAT 96
[2023-02-19 19:38] VITALS: BP 160/74; PULSE 89; RESP 18; TEMP 36.8; O2SAT 93
[2023-02-19 23:34] VITALS: RESP 18
[2023-02-20 03:52] VITALS: BP 115/79; PULSE 60; RESP 16; TEMP 36; O2SAT 95
[2023-02-20 06:23] LABS: Anion Gap 13 (12-20); Blood Urea Nitrogen 16 mg/dL (9-16); Calcium 10.4 mg/dL (8.4-10.2); Carbon Dioxide 22 mmol/L (22-29); Chloride 111 mmol/L (96-108); Creatinine Clr Calc Pharmacy 31.4; Estimated Glomerular Filt Rate 37; Glucose Random 81 mg/dL (60-115); Potassium 3.8 mmol/L (3.3-5.1); Sodium 142 mmol/L (135-145)
[2023-02-20 07:20] VITALS: BP 158/70; PULSE 61; RESP 18; TEMP 36.1; O2SAT 94
--- NOTE | 2023-02-20 11:29 | PM.DS ---
DS: Providers Provider Date of Service: 02/20/23 Date of admission: 02/16/23 11:13 Primary care physician: Jen Yeboah MD Consults: 02/16/23 11:18 Consult to Nephrology Routine Consulting Provider: Yovany Ruiz Reason for consultation: PAOLA Has provider been notified: No DS: Diagnosis Discharge Diagnosis (1) PAOLA (acute kidney injury): Status: Acute DS: Summary Hospital Course Hospital Course: This is an 82-year-old female who was brought to the emergency department for evaluation of visual hallucinations and confusion.? This reportedly began last night.? Patient was recently hospitalized from January 16 until January 19 with acute kidney injury as well as pneumonia.? She was discharged home with [facility].? Did her confusion it is unclear how she has been doing at home.? She has Reportedly has been eating and drinking but states that she is trying to lose weight so has been decreasing her portion sizes.? She denies any abdominal pain, vomiting, diarrhea.? In the emergency department her workup was significant for PAOLA with a creatinine of 3.36.? Urinalysis was negative for acute infection as was her chest x-ray and brain CT.? She received a L of normal saline and the decision was made to admit her to the hospital for further management of acute kidney injury. 82-year-old woman admitted with acute metabolic encephalopathy secondary to PAOLA on CKD stage 3 a secondary to prerenal azotemia. Her creatinine on presentation was 3.39 and did down to 1.37 with IV fluids and holding Lasix and Aldactone. Seen and evaluated by Nephrology who thought that the PAOLA was secondary to prerenal azotemia. Her metabolic encephalopathy also improved significantly after treatment for PAOLA. Also noted coag neg staph in the blood /2, therefore contaminant. At this point patient is safe for discharge to rehab at her baseline. CHF, unspecified. Lasix held during admission May continue lasix, aldactone at discharge Chronic atrial fibrillation. No changes, continue metoprolol and Eliquis mental health. continue home medications ARMIDA. cpap Obesity. BMI 33.4. Discussed importance of weight management as this may be contributing to worsening of other comorbidities Time Spent with Patient Time attestation: Total time managing care of this patient today ____ minutes. Discharge coordination time: Greater than 30 minutes Quality: Safe Use of Opioids Does Pt have an Active Cancer Diagnosis on the Problem List?: No Quality: Stroke Does the patient have a stroke diagnosis?: No Physical Exam Vital Signs: Vital Signs: Last Vital Signs Temp 97.0 F 02/20/23 07:20 Pulse 61 02/20/23 07:20 Resp 18 02/20/23 07:20 BP 158/70 H 02/20/23 07:20 Pulse Ox 94 02/20/23 07:20 O2 Del Method Room Air 02/20/23 07:20 O2 Flow Rate 93 02/17/23 08:00 BMI result Body Mass Index 33.4 Appearing in no acute distress head is normocephalic atraumatic eyes pupils are PERRLA sclera is anicteric mouth throat mucous membranes are intact and moist neck is supple no lymphadenopathy, no JVD noted lung sounds are clear to auscultation heart regular rate rhythm, clear S1, S2 positive bowel sounds, abdomen is soft, nontender neuro patient is alert x3, no focal deficits DS: Data Data Completed and Pending Completed studies during hospitalization [Text1]: Procedures Assistance with Respiratory Ventilation, Less than 24 Consecutive Hours, Continuous Positive Airway Pressure (01/16/23) Labs on day of discharge: Laboratory Results - last 24 hr 02/20/23 05:35 Sodium 142 Potassium 3.8 Chloride 111 H Carbon Dioxide 22 Anion Gap 13 BUN 16 Creatinine 1.37 Estim Creat Clear Calc 31.4 Estimated GFR 37 Random Glucose 81 Calcium 10.4 H D Preliminary micro results at discharge 02/16/23 08:49 Blood Culture - Preliminary Blood - Venous No growth after 48 hours. Discharge Plan Discharge Anticipated Discharge Date/Time: 02/20/23 11:17 Patient Disposition: Xfer Inpatient Rehab Fac Discharge Diagnosis: PAOLA on CKD 3 Acute metabolic encephalopathy CHF, no exacerbation Referrals: Jen Yeboah MD [Primary Care Provider] - 1 Week Discharge Medications: Continued furosemide 40 mg tablet 40 mg PO DAILY metoprolol succinate 100 mg tablet extended release 24 hr 100 mg PO BID olanzapine 5 mg tablet 10 mg PO BEDTIME spironolactone 25 mg tablet 25 mg PO DAILY levothyroxine 100 mcg tablet 100 mcg PO DAILY@0600 rosuvastatin 40 mg tablet 40 mg PO BEDTIME vilazodone 20 mg tablet 20 mg PO DAILY Eliquis 5 mg tablet 5 mg PO BID olanzapine 5 mg tablet 5 mg PO DAILY alendronate 70 mg tablet 70 mg PO FR Discharge Orders: Discharge Order (Routine); Ordered 02/20/23 Ordered By: Gladys Caba Diet: Advance to usual diet Activity on Discharge: As tolerated Stand Alone Forms: Patient Portal Discharge page Care Plan Goals: Complete resolution of symptoms Health Concerns: PAOLA on CKD 3 Acute metabolic encephalopathy CHF, no exacerbation Plan of Treatment: Follow-up with primary care provider as needed Take all medications as prescribed Assessment: See discharge summary
--- NOTE | 2023-02-20 14:09 | MHC.CM.PN ---
IMM 02/20/23 Patient is discharged today. She will return to [facility] via BLS.
--- NOTE | 2023-02-20 14:11 | PM.PNNEP ---
Subjective Subjective Date of Service: 02/20/23 Interval history: seen and examined this morning Overall doing Physical Exam Vital Signs: Vital Signs: Last Vital Signs Temp 97.0 F 02/20/23 07:20 Pulse 61 02/20/23 07:20 Resp 18 02/20/23 07:20 BP 158/70 H 02/20/23 07:20 Pulse Ox 94 02/20/23 07:20 O2 Del Method Room Air 02/20/23 07:20 O2 Flow Rate 93 02/17/23 08:00 BMI result Body Mass Index 33.4 Const: General: cooperative, comfortable, no acute distress, alert and awake Nutritional Appearance: overweight Orientation/consciousness: oriented to person Resp: Effort & Inspection: normal respiratory effort, able to speak in complete sentences, no respiratory distress and no use of accessory muscles Auscultation: clear to auscultation bilaterally Cardio: Rate: regular rate GI: Inspection: No distended Palpation (GI): Soft to palpation and nontender Neuro: Other: no focal deficits appreciated General: oriented to person, moves all extremities and CN's II-XI intact bilaterally Extrem: General: Yes no pedal edema Objective Data Labs 02/16/23 08:49 02/20/23 05:35 Labs: Laboratory Results - last 24 hr 02/20/23 05:35 Sodium 142 Potassium 3.8 Chloride 111 H Carbon Dioxide 22 Anion Gap 13 BUN 16 Creatinine 1.37 Estim Creat Clear Calc 31.4 Estimated GFR 37 Random Glucose 81 Calcium 10.4 H D Microbiology Microbiology Results: Microbiology 02/16/23 08:49 Blood - Venous Blood Culture - Final Coag negative Staphylococcus 02/16/23 08:49 Blood - Venous Blood Culture - Preliminary No growth after 48 hours. Procedures Date of Service Date of Service: 02/20/23 Assessment & Plan Assessment and plan (1) PAOLA (acute kidney injury): Status: Acute Plan PAOLA: resolving REC: track UOP/renal func; avoid Ntoxins Time Spent With Patient Time: Total time managing care of this patient today ____ minutes. Progress Note: Quality Stroke Does the patient have a stroke diagnosis?: No
[2023-02-20 15:41] VITALS: BP 119/70; PULSE 71; RESP 18; TEMP 36.1; O2SAT 95
== END 2023-02-20 16:30 | DRG 682 ==
LOC: HO.ED 09:43 → HO.EDOVER 11:34 → HO.S3 13:23
PROVIDERS: Admitting Provider Physician Assistant Medical; Emergency Provider Emergency Medicine Emergency Medical Services; PCP Family Medicine; Visit Provider Nurse Practitioner Acute Care
DX: N17.9 Acute kidney failure, unspecified (principal); G93.41 Metabolic encephalopathy; I48.20 Chronic atrial fibrillation, unspecified; N18.30 Chronic kidney disease, stage 3 unspecified; I50.9 Heart failure, unspecified; G47.33 Obstructive sleep apnea (adult) (pediatric); E66.9 Obesity, unspecified; Z68.33 Body mass index [BMI] 33.0-33.9, adult; E78.5 Hyperlipidemia, unspecified; E03.9 Hypothyroidism, unspecified; Z79.01 Long term (current) use of anticoagulants; Z86.711 Personal history of pulmonary embolism; Z79.890 Hormone replacement therapy; Z79.899 Other long term (current) drug therapy
CPT/HCPCS: 36415; 70450; 71045; 80048; 80053; 81001; 83605; 85025; 87040; 87147; 87205; 93005; 94660; 97162; 99285

== ENCOUNTER → 2023-02-16 11:13 | Outpatient (BNV) | payer MEDICARE, OTHER, SELFPAY | PROVIDERS: Admitting Provider Physician Assistant Medical; Emergency Provider Emergency Medicine Emergency Medical Services; PCP Family Medicine; Visit Provider Physician Assistant Medical | DX: N17.9 Acute kidney failure, unspecified (principal) | CPT/HCPCS: 99223; 99232; 99239 ==